=== PATIENT | male | born 1945 | race Caucasian/White ===

== ENCOUNTER 2016-09-08 15:56 | Observation (INO) | payer OTHER ==
[2016-09-08] MEDS ORDERED: MORPHINE SULFATE INJ 2 MG IVP PRN (16:59)
[2016-09-08] MEDS ORDERED: NITROSTAT SL PRN (16:59)
[2016-09-08] MEDS: NS 1000 ML 1,000 ML IV SCH (17:18)
[2016-09-08 17:25] LABS: BASOPHILS # (AUTO) 0.1 X10^3/uL (0.0-0.1); BASOPHILS % (AUTO) 0.8 % (0.2-1.0); EOSINOPHILS # (AUTO) 0.4 x10^3/uL (0.0-0.2); EOSINOPHILS % (AUTO) 3.9 % (0.9-2.9); HEMATOCRIT 48.7 % (42.0-54.0); HEMOGLOBIN 16.8 g/dL (13.5-18.0); LYMPHOCYTES # (AUTO) 1.4 X10^3/uL (1.3-2.9); LYMPHOCYTES % (AUTO) 13.3 % (21.0-51.0); MEAN CORPUSCULAR HEMOGLOBIN 32.1 pg (27.0-34.0); MEAN CORPUSCULAR HGB CONC 34.4 g/dL (33.0-35.0); MEAN CORPUSCULAR VOLUME 93.4 fL (80.0-100.0); MEAN PLATELET VOLUME 7.3 fL (7.4-11.0); MONOCYTES # (AUTO) 1.4 x10^3/uL (0.3-0.8); MONOCYTES % (AUTO) 13.4 % (0.0-13.0); NEUTROPHILS # (AUTO) 7.3 x10^3/uL (2.2-4.8); NEUTROPHILS % (AUTO) 68.6 % (42.0-75.0); PLATELET COUNT 322 X10^3/uL (150.0-450.0); RED BLOOD COUNT 5.22 X10^6/uL (4.7-6.0); RED CELL DISTRIBUTION WIDTH 14.3 % (11.6-16.5); WHITE BLOOD COUNT 10.7 X10^3/uL (3.6-10.0)
[2016-09-08 17:36] LABS: ALANINE AMINOTRANSFERASE 25 Units/L (12-78); ALBUMIN 3.6 g/dL (3.4-5.0); ALKALINE PHOSPHATASE 72 Units/L (46-116); ASPARTATE AMINO TRANSFERASE 18 Units/L (15-37); BLOOD UREA NITROGEN 14 mg/dL (7-18); CALCIUM 9.3 mg/dL (8.5-10.1); CARBON DIOXIDE 29.2 mmol/L (21-32); CHLORIDE 100 mmol/L (98-107); CREATININE 1.42 mg/dL (0.70-1.30); GLUCOSE 100 mg/dL (65-99); MAGNESIUM 1.8 mg/dL (1.7-2.9); SODIUM 135 mmol/L (136-145); TOTAL PROTEIN 8.4 g/dL (6.4-8.2); eGFR BLACK RACES > 60 (>60); eGFR NON BLACK RACES 52 (>60)
[2016-09-08 17:39] VITALS: BMI 25.4
[2016-09-08 17:44] LABS: CKMB % 0.8 % (<4); CREATINE KINASE 119 Units/L (39-308); TROPONIN I < 0.02 ng/mL (0-1.5)
--- NOTE | 2016-09-08 17:48 | RAD ---
History: Chest pain Study: Portable chest. Comparison: January 30, 2015 Findings: There is unchanged mild cardiomegaly status post old Coronary artery bypass grafting surge ry. There are intact pacemaker wire leads in place. The lungs are clear. There is no pleural effusio n or vascular congestion. Impression: Unchanged mild cardiomegaly, no definite acute disease. Reported By:
[2016-09-08 18:00] LABS: B-TYPE NATRIURETIC PEPTIDE 101 pg/mL (0-79)
[2016-09-08] MEDS: ASPIRIN PO SCH (18:34)
[2016-09-08] MEDS ORDERED: PATIENT'S HOME MEDICATION PO SCH (21:00)
[2016-09-08] MEDS ORDERED: SOTALOL HCL PO SCH (21:00)
[2016-09-08] MEDS ORDERED: ALLEGRA ONE (21:40)
[2016-09-08] MEDS: ALLEGRA PO SCH (21:46)
[2016-09-08] MEDS: COREG TAB 6.25 MG PO SCH (21:46)
[2016-09-08] MEDS: RESTORIL CAP 30 MG PO SCH (21:46)
[2016-09-08] MEDS: LIPITOR TAB 40 MG PO SCH (21:46)
[2016-09-08] MEDS: ZESTRIL TAB 10 MG PO SCH (21:47)
[2016-09-08] MEDS: FERROUS SULFATE PO SCH (21:47)
[2016-09-08] MEDS: ZANTAC PO SCH (21:47)
[2016-09-08] MEDS: XARELTO PO SCH (21:47)
[2016-09-08] MEDS: RANEXA PO SCH (21:47)
[2016-09-08] MEDS: MEXILETINE HCL 150 MG PO SCH (21:49)
[2016-09-08] MEDS: CYMBALTA PO SCH (21:54)
[2016-09-08 22:16] LABS: CKMB % 0.7 % (<4); CREATINE KINASE 148 Units/L (39-308); CREATINE KINASE MB < 1.0 ng/mL (0-4.0); TROPONIN I 0.02 ng/mL (0-1.5)
[2016-09-09 01:22] LABS: CKMB % 1.1 % (<4); CREATINE KINASE 92 Units/L (39-308); CREATINE KINASE MB < 1.0 ng/mL (0-4.0); TROPONIN I 0.02 ng/mL (0-1.5)
[2016-09-09 05:28] LABS: BASOPHILS # (AUTO) 0.1 X10^3/uL (0.0-0.1); BASOPHILS % (AUTO) 1.1 % (0.2-1.0); EOSINOPHILS # (AUTO) 0.4 x10^3/uL (0.0-0.2); EOSINOPHILS % (AUTO) 5.2 % (0.9-2.9); HEMATOCRIT 44.7 % (42.0-54.0); HEMOGLOBIN 15.2 g/dL (13.5-18.0); LYMPHOCYTES # (AUTO) 1.5 X10^3/uL (1.3-2.9); MEAN CORPUSCULAR HEMOGLOBIN 31.7 pg (27.0-34.0); MEAN CORPUSCULAR HGB CONC 33.9 g/dL (33.0-35.0); MEAN CORPUSCULAR VOLUME 93.6 fL (80.0-100.0); MEAN PLATELET VOLUME 7.2 fL (7.4-11.0); MONOCYTES # (AUTO) 1.2 x10^3/uL (0.3-0.8); MONOCYTES % (AUTO) 14.9 % (0.0-13.0); NEUTROPHILS # (AUTO) 4.8 x10^3/uL (2.2-4.8); NEUTROPHILS % (AUTO) 59.8 % (42.0-75.0); PLATELET COUNT 262 X10^3/uL (150.0-450.0); RED BLOOD COUNT 4.78 X10^6/uL (4.7-6.0)
[2016-09-09 05:34] LABS: ALANINE AMINOTRANSFERASE 25 Units/L (12-78); ALKALINE PHOSPHATASE 61 Units/L (46-116); ASPARTATE AMINO TRANSFERASE 21 Units/L (15-37); BLOOD UREA NITROGEN 13 mg/dL (7-18); CALCIUM 8.6 mg/dL (8.5-10.1); CHLORIDE 101 mmol/L (98-107); CHOL/HDL RATIO 4.4 (0.0-5.0); CHOLESTEROL 177 mg/dL (0-200); COR CA(FOR HYPOALB) 9.4 mg/dL (8.5-10.1); CREATININE 1.42 mg/dL (0.70-1.30); GLUCOSE 96 mg/dL (65-99); HDL CHOLESTEROL 40 mg/dL (40-60); SODIUM 136 mmol/L (136-145); TOTAL PROTEIN 7.4 g/dL (6.4-8.2); TRIGLYCERIDES 63 mg/dL (0-150); eGFR BLACK RACES > 60 (>60); eGFR NON BLACK RACES 52 (>60)
--- NOTE | 2016-09-09 06:18 | RAD ---
HISTORY: Chest pain Study: Chest one view Comparison: September 08, 2016 Findings: There is a pacemaker present on the left obscuring a portion of the left upper lobe. The patient is status post median sternotomy and CABG. The heart is mildly enlarged. No congestive heart failure is noted. No acute alveolar infiltrates are identified. No definite pleural effusions are identified. The bony thorax is unremarkable. IMPRESSION: Mild cardiomegaly without congestive heart failure No infiltrates Reported By:
[2016-09-09 08:13] LABS: BILIRUBIN,URINE NEGATIVE (NEGATIVE); BLOOD/HEMOGLOBIN,URINE NEGATIVE (NEGATIVE); GLUCOSE, URINE NEGATIVE (NEGATIVE); KETONES,URINE NEGATIVE (NEGATIVE); LEUKOCYTE ESTERASE ,URINE NEGATIVE (NEGATIVE); NITRITES,URINE NEGATIVE (NEGATIVE); PROTEIN,URINE NEGATIVE (NEGATIVE); UROBILINOGEN,URINE NORMAL (NORMAL)
[2016-09-09 08:21] LABS: APPEARANCE,URINE CLEAR (CLEAR); BACTERIA,URINE NEGATIVE /HPF (NEGATIVE); COLOR,URINE YELLOW (YELLOW); RBC,URINE NONE SEEN /HPF (NEGATIVE); SQUAMOUS EPITHELIAL CELL,UR RARE /HPF (NEGATIVE)
[2016-09-09] MEDS: ALDACTONE TAB 25 MG PO SCH (09:10)
[2016-09-09] MEDS: PROTONIX TAB 40 MG PO SCH (09:10)
[2016-09-09] MEDS: ASPIRIN PO SCH (09:10)
[2016-09-09] MEDS: COREG TAB 6.25 MG PO SCH ×2 (09:10→21:00)
[2016-09-09] MEDS: VALIUM PO SCH (09:11)
[2016-09-09] MEDS: FERROUS SULFATE PO SCH ×2 (09:11→21:00)
[2016-09-09] MEDS: LOVAZA PO SCH ×2 (09:12→21:01)
[2016-09-09] MEDS: RANEXA PO SCH ×2 (09:12→21:01)
[2016-09-09] MEDS: BETAPACE AF PO SCH ×2 (09:13→21:01)
[2016-09-09] MEDS: MEXILETINE HCL 150 MG PO SCH ×2 (09:15→21:02)
--- NOTE | 2016-09-09 10:28 | DR.UPDATE ---
H&P Update History and Physical Update: WAS SEEN IN OUR OFFICE ON 09/08/16. A H&P WAS COMPLETED PRIOR TO ADMISSION. PATIENT HAS BEEN SEEN AND EXAMINED WITH NO CHANGES NOTED. Changes noted: NO Yes with the following:
--- NOTE | 2016-09-09 10:36 | PCM.PROG ---
Progress Note - Progress Note for Day of Date: 09/09/16 - Subjective Subjective: IS A 71 YEAR OLD PATIENT OF OUR WHO WAS ADMITTED YESTERDAY EVENING WITH COMPLAINTS OF CHEST PAIN AND SHORTNESS OF BREATH. HE IS ALERT IN BED ON MORNING ROUNDS. PATIENT CONTINUES WITH COMPLAINTS OF SHORTNESS BUT DENIES CHEST PAIN AT THE TIME. VITALS THIS MORNING 98.5, 60, 18, 99%, 106/ 70. LABS WNL EXCEPT CREATININE 1.42, ALBUMIN 3.0, LDL CHOLESTEROL 124. CHEST XRAY REPORTS CARDIOMEGALY WITHOUT CHF. WE WILL ORDER AN ECHO, RECHECK LABS AND FOLLOW UP WITH PATIENT IN AM. - Past Medical Family Social History Past Med/Fam/Surg Hx: No changes since H&P Allergies: Allergies amiodarone Allergy (Verified 09/08/16 16:32) dabigatran etexilate [From Pradaxa] Allergy (Verified 09/08/16 16:32) zolpidem [From Ambien] Allergy (Verified 09/08/16 16:32) - Review of Systems ROS: No change since H&P - Vital Signs and I&O's Vital Signs: Temperature 98.5 F Pulse Rate [Apical] 60 Respiratory Rate 17 Blood Pressure [Right Arm] 126/83 Blood Pressure [Left Arm] 118/71 Blood Pressure 116/60 O2 Sat by Pulse Oximetry 96 Intake and Output: Intake & Output 09/06/16 09/07/16 09/08/16 09/09/16 11:59 11:59 11:59 11:59 Intake Total 1150 Balance 1150 - Physical Exam Oriented: Normal. negative: Time, Person, Place, Not Oriented, Unable to test, Other Eyes: Normal. negative: Blurred Vision, Diplopia, Discharge, Pain, Redness, Photophobia, Other Ear: Normal. negative: Right, Left, Swelling, Ecchymosis, Hemotypanum, Abrasion , Laceration Nose: Normal. negative: Injected, Discharge, Blood, Other Throat: Normal, Dry Respiratory: Normal, OTHER (SHORTNESS OF BREATH ) Cardiovascular: Normal. negative: Tachycardia, Bradycardia, Irregular, S3, S4, Systolic, Diastolic, Murmur, Edema, Other : Normal. negative: Dysuria, Hematuria, Frequency, Discharge, Testicular Pain , Bleeding, , Other Auscultation: Bowel Sounds: Normal. negative: Bruit, Absent, Increased, Decreased, High Pitched, Other Palpation: Normal Tenderness: Normal. negative: Diffuse, RUQ, RLQ, LUQ, LLQ, Epigastric, Periumbilical, Suprapubic, Mild, Moderate, Severe, Rebound, Guarding, Rigidity, Other Skin: Normal. negative: Decreased Turgur, Rash, Papular, Macular, Maculopapular , Vesicular, Pustular, Petechial, Red, Tender, Hot, Diaphoresis, Wound, Bruising , Ecchymosis, Other Musculoskeletal: Normal. negative: Right, Left, Shoulder, Clavicle, Arm, Elbow , Forearm, Wrist, Hand, Hip, Thigh, Knee, Leg, Ankle, Foot, Back:Thoracic, Back: Lumbar, Back:Midline, Back:Paraspinous, Pelvis, Swelling, Tender, Deformity, Pulse Deficit, Motor Deficit, Sensory Deficit, Instability, Crepitance Psychiatric: Normal Mood Description: Calm Affect: Normal Speech Pattern: Clear, Appropriate - Laboratory and Diagnostics Result Diagrams: 09/09/16 05:00 09/09/16 05:00 Labs: Laboratory WBC 8.0 X10^3/uL (3.6-10.0) 09/09/16 05:00 RBC 4.78 X10^6/uL (4.7-6.0) 09/09/16 05:00 Hgb 15.2 g/dL (13.5-18.0) 09/09/16 05:00 Hct 44.7 % (42.0-54.0) 09/09/16 05:00 MCV 93.6 fL (80.0-100.0) 09/09/16 05:00 MCH 31.7 pg (27.0-34.0) 09/09/16 05:00 MCHC 33.9 g/dL (33.0-35.0) 09/09/16 05:00 RDW 14.0 % (11.6-16.5) 09/09/16 05:00 Plt Count 262 X10^3/uL (150.0-450.0) 09/09/16 05:00 MPV 7.2 fL (7.4-11.0) L 09/09/16 05:00 Neut % 59.8 % (42.0-75.0) 09/09/16 05:00 Lymph % 19.0 % (21.0-51.0) L 09/09/16 05:00 [place] % 14.9 % (0.0-13.0) H 09/09/16 05:00 Eos % 5.2 % (0.9-2.9) H 09/09/16 05:00 Baso % 1.1 % (0.2-1.0) H 09/09/16 05:00 Neut # 4.8 x10^3/uL (2.2-4.8) 09/09/16 05:00 Lymph # 1.5 X10^3/uL (1.3-2.9) 09/09/16 05:00 [place] # 1.2 x10^3/uL (0.3-0.8) H 09/09/16 05:00 Eos # 0.4 x10^3/uL (0.0-0.2) H 09/09/16 05:00 Baso # 0.1 X10^3/uL (0.0-0.1) 09/09/16 05:00 Absolute Nucleated RBC 0.1 /100WBC 09/09/16 05:00 INR Target Range - 09/08/16 17:13 INR 1.41 (0.8-1.3) H 09/08/16 17:13 PTT 39.9 SECONDS (22.9-36.5) H 09/08/16 17:13 PTT Comment - 09/08/16 17:13 Sodium 136 mmol/L (136-145) 09/09/16 05:00 Corrected Sodium TNP 09/09/16 05:00 Potassium 4.7 mmol/L (3.5-5.1) 09/09/16 05:00 Chloride 101 mmol/L (98-107) 09/09/16 05:00 Carbon Dioxide 30.0 mmol/L (21-32) 09/09/16 05:00 BUN 13 mg/dL (7-18) 09/09/16 05:00 Creatinine 1.42 mg/dL (0.70-1.30) H 09/09/16 05:00 Est GFR (MDRD) Af Amer > 60 (>60) 09/09/16 05:00 Est GFR (MDRD) Non-Af 52 (>60) L 09/09/16 05:00 Glucose 96 mg/dL (65-99) 09/09/16 05:00 Calcium 8.6 mg/dL (8.5-10.1) 09/09/16 05:00 Corrected Calcium 9.4 mg/dL (8.5-10.1) 09/09/16 05:00 Magnesium 1.8 mg/dL (1.7-2.9) 09/08/16 17:13 Total Bilirubin 0.30 mg/dL (0.2-1.0) 09/09/16 05:00 AST 21 Units/L (15-37) 09/09/16 05:00 ALT 25 Units/L (12-78) 09/09/16 05:00 Alkaline Phosphatase 61 Units/L (46-116) 09/09/16 05:00 Creatine Kinase 92 Units/L (39-308) 09/09/16 00:50 CK-MB (CK-2) < 1.0 ng/mL (0-4.0) 09/09/16 00:50 CK/CKMB % Calc 1.1 % (<4) 09/09/16 00:50 Troponin I 0.02 ng/mL (0-1.5) 09/09/16 00:50 B-Natriuretic Peptide 101 pg/mL (0-79) H 09/08/16 17:13 Total Protein 7.4 g/dL (6.4-8.2) 09/09/16 05:00 Albumin 3.0 g/dL (3.4-5.0) L 09/09/16 05:00 Globulin 4.4 g/dL (2.5-4.5) 09/09/16 05:00 Albumin/Globulin Ratio 0.7 Ratio (1.1-2.1) L 09/09/16 05:00 Triglycerides 63 mg/dL (0-150) 09/09/16 05:00 Cholesterol 177 mg/dL (0-200) 09/09/16 05:00 LDL Cholesterol, Calc 124 mg/dL (0-100) H 09/09/16 05:00 HDL Cholesterol 40 mg/dL (40-60) 09/09/16 05:00 Cholesterol/HDL Ratio 4.4 (0.0-5.0) 09/09/16 05:00 Specimen Type Clean catch urine 09/09/16 07:50 Urine Color Yellow (YELLOW) 09/09/16 07:50 Urine Appearance Clear (CLEAR) 09/09/16 07:50 Urine pH 6.0 (5.0 - 8.0) 09/09/16 07:50 Ur Specific Fraser 1.015 (1.000-1.030) 09/09/16 07:50 Urine Protein Negative (NEGATIVE) 09/09/16 07:50 Urine Glucose (UA) Negative (NEGATIVE) 09/09/16 07:50 Urine Ketones Negative (NEGATIVE) 09/09/16 07:50 Urine Occult Blood Negative (NEGATIVE) 09/09/16 07:50 Urine Nitrite Negative (NEGATIVE) 09/09/16 07:50 Urine Bilirubin Negative (NEGATIVE) 09/09/16 07:50 Urine Urobilinogen Normal (NORMAL) 09/09/16 07:50 Ur Leukocyte Esterase Negative (NEGATIVE) 09/09/16 07:50 Urine RBC None seen /HPF (NEGATIVE) 09/09/16 07:50 Urine WBC None seen /HPF (NEGATIVE) 09/09/16 07:50 Ur Squamous Epith Cells Rare /HPF (NEGATIVE) 09/09/16 07:50 Urine Bacteria Negative /HPF (NEGATIVE) 09/09/16 07:50 Ur Culture Indicated? No/not indicated 09/09/16 07:50 - Plan (1) Chest pain Status: Acute Qualifiers: Chest pain type: C Ischemic chest pain type: I Plan: CONTINUE MORPHINE, NITRO, CHECK LABS AND EKG, CONTINUE TO MONITOR (2) Shortness of breath Status: Acute Plan: SUPPLEMENTAL OXYGEN, CHECK CHEST XRAY, CONTINUE TO MONITOR (3) CHF (congestive heart failure) Status: Chronic Qualifiers: Congestive heart failure type: unspecified congestive heart failure type Congestive heart failure chronicity: acute on chronic Qualified Code(s): I50.9 - Heart failure, unspecified Plan: CHECK CHEST XRAY, CHECK LABS, CONTINUE TO MONITOR (4) Hyperlipidemia Status: Chronic Qualifiers: Hyperlipidemia type: mixed hyperlipidemia Qualified Code(s): E78.2 - Mixed hyperlipidemia Plan: CONTINUE LIPITOR, CONTINUE TO MONITOR (5) Hypertension Status: Chronic Qualifiers: Hypertension type: essential hypertension Qualified Code(s): I10 - Essential (primary) hypertension Plan: CONTINUE COREG, LISINOPRIL, CONTINUE TO MONITOR (6) COPD (chronic obstructive pulmonary disease) Status: Chronic Qualifiers: COPD type: C Chronic bronchitis type: C Emphysema type: E Plan: CONTINUE HOME MEDICATIONS, CONTINUE TO MONITOR (7) GERD (gastroesophageal reflux disease) Status: Chronic Qualifiers: Esophagitis presence: E Plan: CONTINUE HOME MED ZANTAC, CONTINUE TO MONITOR
[2016-09-09] MEDS: NS 1000 ML 1,000 ML IV SCH (11:21)
[2016-09-09] MEDS ORDERED: ALLEGRA ONE (20:41)
[2016-09-09] MEDS: XARELTO PO SCH (21:00)
[2016-09-09] MEDS: RESTORIL CAP 30 MG PO SCH (21:00)
[2016-09-09] MEDS: ALLEGRA PO SCH (21:00)
[2016-09-09] MEDS: ZESTRIL TAB 10 MG PO SCH (21:01)
[2016-09-09] MEDS: LIPITOR TAB 40 MG PO SCH (21:01)
[2016-09-09] MEDS: ZANTAC PO SCH (21:01)
[2016-09-09] MEDS: CYMBALTA PO SCH (21:05)
[2016-09-10 05:33] LABS: ALANINE AMINOTRANSFERASE 21 Units/L (12-78); ALBUMIN 2.8 g/dL (3.4-5.0); ALKALINE PHOSPHATASE 57 Units/L (46-116); ASPARTATE AMINO TRANSFERASE 15 Units/L (15-37); BLOOD UREA NITROGEN 13 mg/dL (7-18); CALCIUM 8.1 mg/dL (8.5-10.1); CARBON DIOXIDE 28.3 mmol/L (21-32); CHLORIDE 103 mmol/L (98-107); COR CA(FOR HYPOALB) 9.1 mg/dL (8.5-10.1); COR NA(FOR HYPERGLY) 138 mmol/L (136-145); CREATININE 1.23 mg/dL (0.70-1.30); GLUCOSE 118 mg/dL (65-99); SODIUM 138 mmol/L (136-145); eGFR BLACK RACES > 60 (>60); eGFR NON BLACK RACES > 60 (>60)
[2016-09-10 05:43] LABS: BASOPHILS # (AUTO) 0.1 X10^3/uL (0.0-0.1); BASOPHILS % (AUTO) 1.5 % (0.2-1.0); EOSINOPHILS # (AUTO) 0.4 x10^3/uL (0.0-0.2); EOSINOPHILS % (AUTO) 4.9 % (0.9-2.9); HEMATOCRIT 43.5 % (42.0-54.0); HEMOGLOBIN 14.7 g/dL (13.5-18.0); LYMPHOCYTES # (AUTO) 1.4 X10^3/uL (1.3-2.9); LYMPHOCYTES % (AUTO) 15.3 % (21.0-51.0); MEAN CORPUSCULAR HEMOGLOBIN 32.1 pg (27.0-34.0); MEAN CORPUSCULAR HGB CONC 33.9 g/dL (33.0-35.0); MEAN CORPUSCULAR VOLUME 94.6 fL (80.0-100.0); MEAN PLATELET VOLUME 7.8 fL (7.4-11.0); MONOCYTES # (AUTO) 1.2 x10^3/uL (0.3-0.8); NEUTROPHILS # (AUTO) 5.9 x10^3/uL (2.2-4.8); NEUTROPHILS % (AUTO) 65.3 % (42.0-75.0); PLATELET COUNT 292 X10^3/uL (150.0-450.0); RED BLOOD COUNT 4.59 X10^6/uL (4.7-6.0); RED CELL DISTRIBUTION WIDTH 13.8 % (11.6-16.5); WHITE BLOOD COUNT 9.1 X10^3/uL (3.6-10.0)
--- NOTE | 2016-09-10 07:26 | RAD ---
HISTORY: Chest pain Study: Chest one view Comparison: September 09, 2016 Findings: There is a pacemaker present on the left obscuring a portion of the left upper lobe. The patient is status post median sternotomy and CABG. The heart remains enlarged. No congestive heart failure is n oted. No acute alveolar infiltrates or pleural effusions are identified. The bony thorax is unremark able. IMPRESSION: Cardiomegaly without congestive heart failure No infiltrates Reported By:
[2016-09-10] MEDS: COREG TAB 6.25 MG PO SCH (08:20)
[2016-09-10] MEDS: VALIUM PO SCH (08:20)
[2016-09-10] MEDS: FERROUS SULFATE PO SCH (08:21)
[2016-09-10] MEDS: LOVAZA PO SCH (08:21)
[2016-09-10] MEDS: ASPIRIN PO SCH (08:21)
[2016-09-10] MEDS: ALDACTONE TAB 25 MG PO SCH (08:21)
[2016-09-10] MEDS: PROTONIX TAB 40 MG PO SCH (08:21)
[2016-09-10] MEDS: BETAPACE AF PO SCH (08:21)
[2016-09-10] MEDS: MEXILETINE HCL 150 MG PO SCH (08:22)
[2016-09-10] MEDS: RANEXA PO SCH (08:22)
[2016-09-10] MEDS: NS 1000 ML 1,000 ML IV SCH (08:23)
[2016-09-10 19:11] VITALS: BP 106/64
== END 2016-09-10 17:20 | disposition home or self-care (01) ==
LOC: ICU 15:56
PROVIDERS: ADMIT Internal Medicine; ATTEND Internal Medicine
DX: R07.89 Other chest pain (principal); R06.02 Shortness of breath; I25.10 Atherosclerotic heart disease of native coronary artery without angina pectoris; I51.7 Cardiomegaly; I50.9 Heart failure, unspecified; E78.2 Mixed hyperlipidemia; J44.9 Chronic obstructive pulmonary disease, unspecified; K21.9 Gastro-esophageal reflux disease without esophagitis; Z95.0 Presence of cardiac pacemaker; R79.1 Abnormal coagulation profile; R94.4 Abnormal results of kidney function studies; E87.5 Hyperkalemia; E87.1 Hypo-osmolality and hyponatremia
CPT/HCPCS: 36415; 71010; 80053; 80061; 81001; 82550; 82553; 83735; 83880; 84484; 85025; 85610; 85730; 93005; 93306; A4216; A4222; G0378

== ENCOUNTER → 2016-09-17 | Outpatient (CLI) | payer OTHER ==
[2016-09-10 19:11] VITALS: BP 106/64
--- NOTE | 2016-09-17 12:38 | CT ---
HISTORY: Headache. Study: CT brain without contrast Comparison: None. Technique: Multiple axial images of the brain were obtained from the skull base to the vertex without administr ation of IV contrast. Dose reduction techniques including Automated Exposure Control (AEC) and adju stment of mA and kV were utilized. Findings: Age related cortical atrophy and chronic small vessel ischemic changes. No acute intraparenchymal he morrhage or mass can be identified. No extra-axial fluid collections are seen. No alteration in th e attenuation of the brain parenchyma can be identified to suggest acute or subacute ischemic change . The ventricular system is symmetric and nondilated. Severe mucosal thickening in the right maxil willie sinus with associated frothy secretions. Calcification within the posterior right maxillary sin us, which may represent a tooth root versus calcification from chronic sinusitis. IMPRESSION: 1. No acute intracranial process can be identified. 2. Right maxillary sinus disease as above. Reported By:
== END | disposition home or self-care (01) | DRG 103 ==
LOC: RAD 11:35
PROVIDERS: ATTEND Internal Medicine
DX: R51 Headache (principal); Z79.01 Long term (current) use of anticoagulants; D68.8 Other specified coagulation defects
CPT/HCPCS: 70450

== ENCOUNTER 2022-06-24 15:59 | Observation (INO) ==
--- NOTE | 2022-06-24 17:16 | EKG ---
Test Reason : CHEST PAIN , SOB Blood Pressure : */* mmHG Vent. Rate : 63 BPM Atrial Rate : 63 BPM P-R Int : 196 ms QRS Dur : 162 ms QT Int : 446 ms P-R-T Axes : 119 -55 53 degrees QTc Int : 456 ms AV dual-paced rhythm with frequent premature ventricular complexes Abnormal ECG No previous ECGs available Confirmed by Ezekiel Seay ([id number]) on 06/25/2022 6:38:17 PM Referred By: Confirmed By: Ezekiel Seay
[2022-06-24 17:36] VITALS: BMI 25.5
[2022-06-24 17:41] LABS: BASOPHILS # (AUTO) 0.1 X10^3/uL (0.0-0.1); BASOPHILS % (AUTO) 0.9 % (0.2-1.0); EOSINOPHILS # (AUTO) 0.2 x10^3/uL (0.0-0.2); EOSINOPHILS % (AUTO) 1.7 % (0.9-2.9); HEMATOCRIT 43.3 % (42.0-54.0); HEMOGLOBIN 14.4 g/dL (13.5-18.0); LYMPHOCYTES # (AUTO) 1.6 X10^3/uL (1.3-2.9); LYMPHOCYTES % (AUTO) 13.2 % (21.0-51.0); MEAN CORPUSCULAR HGB CONC 33.3 g/dL (33.0-35.0); MEAN CORPUSCULAR VOLUME 96.1 fL (80.0-100.0); MEAN PLATELET VOLUME 7.7 fL (7.4-11.0); MONOCYTES # (AUTO) 1.2 x10^3/uL (0.3-0.8); MONOCYTES % (AUTO) 9.5 % (0.0-13.0); NEUTROPHILS # (AUTO) 9.2 x10^3/uL (2.2-4.8); NEUTROPHILS % (AUTO) 74.7 % (42.0-75.0); RED BLOOD COUNT 4.51 X10^6/uL (4.7-6.0); WHITE BLOOD COUNT 12.3 X10^3/uL (3.6-10.0)
[2022-06-24 17:54] LABS: ALANINE AMINOTRANSFERASE 13 Units/L (12-78); ALBUMIN 3.7 g/dL (3.4-5.0); ALKALINE PHOSPHATASE 53 Units/L (46-116); ASPARTATE AMINO TRANSFERASE 13 Units/L (15-37); BLOOD UREA NITROGEN 11 mg/dL (7-18); CALCIUM 8.6 mg/dL (8.5-10.1); CARBON DIOXIDE 32.6 mmol/L (21-32); CHLORIDE 100 mmol/L (98-107); COR NA(FOR HYPERGLY) 140 mmol/L (136-145); CREATININE 1.35 mg/dL (0.70-1.30); SODIUM 139 mmol/L (136-145); TOTAL PROTEIN 7.2 g/dL (6.4-8.2); eGFR NON BLACK RACES 55 (>60)
[2022-06-24] MEDS: LASIX IVP SCH (17:59)
[2022-06-24] MEDS: NS 1,000 ML IV 1,000 ML IV SCH (17:59)
--- NOTE | 2022-06-24 20:24 | EKG ---
Test Reason : CHEST PAIN , SOB Blood Pressure : */* mmHG Vent. Rate : 62 BPM Atrial Rate : 62 BPM P-R Int : 194 ms QRS Dur : 178 ms QT Int : 466 ms P-R-T Axes : * -87 60 degrees QTc Int : 472 ms AV dual-paced rhythm with frequent ventricular-paced complexes Abnormal ECG When compared with ECG of 24-JUN-2022 17:09, (Unconfirmed) premature ventricular complexes are no longer present Confirmed by Ezekiel Seay ([id number]) on 06/25/2022 6:37:59 PM Referred By: Confirmed By: Ezekiel Seay
--- NOTE | 2022-06-25 01:26 | EKG ---
Test Reason : CHEST PAIN , SOB Blood Pressure : */* mmHG Vent. Rate : 60 BPM Atrial Rate : 60 BPM P-R Int : 284 ms QRS Dur : 142 ms QT Int : 432 ms P-R-T Axes : 6 -25 245 degrees QTc Int : 432 ms Atrial-paced rhythm with prolonged AV conduction Left bundle branch block Abnormal ECG When compared with ECG of 24-JUN-2022 20:17, (Unconfirmed) Electronic atrial pacemaker has replaced Electronic ventricular pacemaker Confirmed by Ezekiel Seay ([id number]) on 06/25/2022 6:37:46 PM Referred By: Confirmed By: Ezekiel Seay
[2022-06-25 05:05] LABS: BASOPHILS # (AUTO) 0.1 X10^3/uL (0.0-0.1); BASOPHILS % (AUTO) 0.7 % (0.2-1.0); EOSINOPHILS # (AUTO) 0.2 x10^3/uL (0.0-0.2); EOSINOPHILS % (AUTO) 1.9 % (0.9-2.9); HEMATOCRIT 41.5 % (42.0-54.0); HEMOGLOBIN 13.9 g/dL (13.5-18.0); LYMPHOCYTES # (AUTO) 1.5 X10^3/uL (1.3-2.9); LYMPHOCYTES % (AUTO) 12.4 % (21.0-51.0); MEAN CORPUSCULAR HGB CONC 33.5 g/dL (33.0-35.0); MEAN CORPUSCULAR VOLUME 95.8 fL (80.0-100.0); MEAN PLATELET VOLUME 7.9 fL (7.4-11.0); MONOCYTES # (AUTO) 1.3 x10^3/uL (0.3-0.8); MONOCYTES % (AUTO) 10.8 % (0.0-13.0); NEUTROPHILS # (AUTO) 9.1 x10^3/uL (2.2-4.8); NEUTROPHILS % (AUTO) 74.2 % (42.0-75.0); RED BLOOD COUNT 4.33 X10^6/uL (4.7-6.0); RED CELL DISTRIBUTION WIDTH 17.4 % (11.6-16.5); WHITE BLOOD COUNT 12.2 X10^3/uL (3.6-10.0)
[2022-06-25 05:16] LABS: ALANINE AMINOTRANSFERASE 13 Units/L (12-78); ALBUMIN 3.4 g/dL (3.4-5.0); ALKALINE PHOSPHATASE 47 Units/L (46-116); ASPARTATE AMINO TRANSFERASE 15 Units/L (15-37); BLOOD UREA NITROGEN 13 mg/dL (7-18); CALCIUM 8.3 mg/dL (8.5-10.1); CARBON DIOXIDE 32.2 mmol/L (21-32); CHLORIDE 101 mmol/L (98-107); CREATININE 1.34 mg/dL (0.70-1.30); SODIUM 139 mmol/L (136-145); TOTAL PROTEIN 6.7 g/dL (6.4-8.2); eGFR NON BLACK RACES 55 (>60)
--- NOTE | 2022-06-25 08:29 | RAD ---
HISTORYCHEST PAIN/SOBSTUDYCHEST, 1 [id number]/18/2020.TECHNIQUEPA or AP view of the chestFINDINGSLeft chest wall pacemaker with leads in good position. Status post median sternotomy and CABG. The cardiac silhouette is stably enlarged. Mediastinal contours appear stable. Linear right peripheral base opacity is present. No large pleural effusion. No pneumothorax.IMPRESSIONLinear right base opacity consistent with subsegmental atelectasis.Electronically signed by: Russell Grady (Jun 25, 2022 08:28:12)
[2022-06-25] MEDS: LASIX IVP SCH ×2 (08:55→17:35)
[2022-06-25] MEDS ORDERED: TUSSIONEX PENNKINETIC SUSP PO PRN (09:46)
[2022-06-25] MEDS ORDERED: TYLENOL #3 TAB (W/CODEINE) PO PRN (09:49)
[2022-06-25] MEDS ORDERED: NITROSTAT SL PRN (09:49)
[2022-06-25] MEDS ORDERED: FORTAZ or TAZICEF VIAL INJ 1 G in NS 100 ML IV + SPIKE MINIBAG* 100 ML IV SCH (10:00)
[2022-06-25] MEDS: DUONEB 0.5 MG/3 MG (3 mL) NEB SCH ×3 (10:11→20:20)
[2022-06-25] MEDS: PULMICORT NEB TX 0.5 MG NEB SCH ×2 (10:11→20:20)
[2022-06-25] MEDS: VITAMIN D3 25 mcg (1,000 UNITS) PO SCH ×2 (10:29→21:24)
[2022-06-25] MEDS: LOVAZA PO SCH ×2 (10:29→21:25)
[2022-06-25] MEDS: VSL#3 PO SCH (10:29)
[2022-06-25] MEDS: ROBITUSSIN DM PO SCH ×4 (10:29→21:30)
[2022-06-25] MEDS: ZESTRIL TAB 5 MG PO SCH ×2 (10:29→21:29)
[2022-06-25] MEDS: RANEXA PO SCH ×2 (10:29→21:25)
[2022-06-25] MEDS: VITAMIN C PO SCH ×2 (10:30→21:17)
[2022-06-25] MEDS: VALIUM PO SCH ×2 (10:30→21:27)
[2022-06-25] MEDS: FOLIC ACID TAB 1 MG PO SCH (10:30)
[2022-06-25] MEDS: FORTAZ or TAZICEF VIAL INJ 1 G in NS 100 ML IV 100 ML IV SCH ×3 (10:32→21:35)
[2022-06-25] MEDS: SYNTHROID 50 mcg TAB PO SCH (10:35)
[2022-06-25] MEDS: COENZYME Q10 200 MG PO SCH (10:36)
[2022-06-25] MEDS: ZINC SULFATE PO SCH (10:47)
[2022-06-25] MEDS: PLAVIX PO SCH (10:47)
[2022-06-25] MEDS: LEVAQUIN PREMIX IV 750 MG 750 MG/150 ML BAG IV SCH (11:06)
[2022-06-25] MEDS: NS 1,000 ML IV 1,000 ML IV SCH ×2 (19:00)
[2022-06-25] MEDS ORDERED: XARELTO PO SCH (21:00)
[2022-06-25] MEDS: MELATONIN PO PRN (21:19)
[2022-06-25] MEDS: XARELTO PO SCH (21:21)
[2022-06-25] MEDS: CRESTOR TAB 10 MG PO SCH (21:22)
[2022-06-25] MEDS: PriLOSEC PO SCH (21:24)
[2022-06-25] MEDS: ZOLOFT PO SCH (21:27)
[2022-06-25] MEDS: ESZOPICLONE 3 MG PO SCH (22:00)
[2022-06-26] MEDS: DUONEB 0.5 MG/3 MG (3 mL) NEB SCH ×3 (05:58→20:45)
[2022-06-26 06:08] LABS: BASOPHILS # (AUTO) 0.1 X10^3/uL (0.0-0.1); BASOPHILS % (AUTO) 0.6 % (0.2-1.0); EOSINOPHILS # (AUTO) 0.2 x10^3/uL (0.0-0.2); EOSINOPHILS % (AUTO) 1.7 % (0.9-2.9); HEMATOCRIT 40.5 % (42.0-54.0); HEMOGLOBIN 13.5 g/dL (13.5-18.0); LYMPHOCYTES # (AUTO) 1.5 X10^3/uL (1.3-2.9); LYMPHOCYTES % (AUTO) 13.6 % (21.0-51.0); MEAN CORPUSCULAR HGB CONC 33.4 g/dL (33.0-35.0); MEAN CORPUSCULAR VOLUME 95.8 fL (80.0-100.0); MEAN PLATELET VOLUME 7.7 fL (7.4-11.0); MONOCYTES # (AUTO) 1.4 x10^3/uL (0.3-0.8); MONOCYTES % (AUTO) 12.9 % (0.0-13.0); NEUTROPHILS # (AUTO) 7.8 x10^3/uL (2.2-4.8); NEUTROPHILS % (AUTO) 71.2 % (42.0-75.0); RED BLOOD COUNT 4.23 X10^6/uL (4.7-6.0); RED CELL DISTRIBUTION WIDTH 16.7 % (11.6-16.5)
[2022-06-26 06:12] LABS: ALANINE AMINOTRANSFERASE 13 Units/L (12-78); ALBUMIN 3.3 g/dL (3.4-5.0); ALKALINE PHOSPHATASE 47 Units/L (46-116); ASPARTATE AMINO TRANSFERASE 13 Units/L (15-37); BLOOD UREA NITROGEN 17 mg/dL (7-18); CALCIUM 8.3 mg/dL (8.5-10.1); CARBON DIOXIDE 31.8 mmol/L (21-32); CHLORIDE 100 mmol/L (98-107); COR CA(FOR HYPOALB) 8.9 mg/dL (8.5-10.1); COR NA(FOR HYPERGLY) 138 mmol/L (136-145); CREATININE 1.43 mg/dL (0.70-1.30); SODIUM 137 mmol/L (136-145); TOTAL PROTEIN 6.6 g/dL (6.4-8.2); eGFR NON BLACK RACES 51 (>60)
[2022-06-26] MEDS: FORTAZ or TAZICEF VIAL INJ 1 G in NS 100 ML IV 100 ML IV SCH ×3 (06:31→21:33)
--- NOTE | 2022-06-26 08:00 | RAD ---
HISTORYPneumonia, shortness of breathSTUDYChest two [id number]/26/2023FINDINGSPatient is status post median sternotomy and CABG. There is a pacemaker present on the left obscuring a portion of the left midlung. Heart is enlarged. No congestive heart failure is noted. Increased density in the right lung base is at least partially due to overlying pleural calcifications. Some infiltrate may also be present. Remainder of the lung delcid are clear. No pleural effusions are identified.IMPRESSIONContinued cardiomegaly without congestive heart failureAbnormal density in the right lung base is partially due to overlying pleural calcifications. Some infiltrate may also be presentElectronically signed by: MARK MONET (Jun 26, 2022 07:59:26)
[2022-06-26] MEDS: PULMICORT NEB TX 0.5 MG NEB SCH ×2 (08:36→20:44)
[2022-06-26] MEDS: ROBITUSSIN DM PO SCH ×4 (09:04→21:34)
[2022-06-26] MEDS: SYNTHROID 50 mcg TAB PO SCH (09:05)
[2022-06-26] MEDS: VSL#3 PO SCH (09:05)
[2022-06-26] MEDS: VITAMIN C PO SCH ×2 (09:06→21:33)
[2022-06-26] MEDS: ZINC SULFATE PO SCH (09:06)
[2022-06-26] MEDS: ALDACTONE TAB 25 MG PO SCH (09:07)
[2022-06-26] MEDS: PLAVIX PO SCH (09:07)
[2022-06-26] MEDS: RANEXA PO SCH ×2 (09:08→21:34)
[2022-06-26] MEDS: LASIX IVP SCH ×2 (09:09→17:25)
[2022-06-26] MEDS: VALIUM PO SCH ×2 (09:10→21:34)
[2022-06-26] MEDS: ZESTRIL TAB 5 MG PO SCH ×2 (09:10→21:32)
[2022-06-26] MEDS: VITAMIN D3 25 mcg (1,000 UNITS) PO SCH ×2 (09:10→21:30)
[2022-06-26] MEDS: LOVAZA PO SCH ×2 (09:11→21:35)
[2022-06-26] MEDS: LEVAQUIN PREMIX IV 750 MG 750 MG/150 ML BAG IV SCH (09:18)
[2022-06-26] MEDS: COENZYME Q10 200 MG PO SCH (09:19)
[2022-06-26] MEDS: FOLIC ACID TAB 1 MG PO SCH (09:19)
--- NOTE | 2022-06-26 10:45 | DR.H&P ---
H&P - History & Physical for Day of: H&P Date: 06/24/22 - Chief Complaint Chief Complaint: COUGH, SOB, CHEST PAIN - History of Present Illness History of Present Illness: IS A 77 YEAR OLD PATIENT OF OURS. HE PRESENTED TO THE HOSPITAL A DIRECT ADMISSION FOR FURTHER EVALUATION AND TREATMENT OF BRONCHOPNEUMONIA, SHORTNESS OF BREATH, AND CHEST PAIN. PATIENT REPORTS THAT HE BEGAN HAVING A COUGH, SHORTNESS OF BREATH, AND CHEST PAIN ABOUT A WEEK AGO. HE REPORTS THAT COUGH HAS BEEN PRODUCTIVE. HE REPORTS THAT SHORTNESS OF BREATH IS WORSE ON EXERTION. HE DESCRIBES CHEST PAIN INTERMITTENT AND PRESSURE LIKE. HE RATES PAIN A 3/10 ON ADMISSION. HE DENIES FEVER, CHILLS, NAUSEA, VOMITING, OR DIARRHEA. 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 OTHER PMH INCLUDES: CAD, CHF, HYPERLIPIDEMIA, HTN, A-FIB, GERD, ARTHRITIS, HYPOTHYROIDISM, ANEMIA, HX OF THROAT CANCER, ANXIETY, DEPRESSION, CARDIAC STENTS, CABG, CHOLECYSTECTOMY, PACEMAKER/DEFIBRILLATOR. ON ADMISSION, HIS VITALS WERE: 97.9-60-20-95%-127/66. LABS WERE OBTAINED. WBC 12.3, RBC 4.51, HGB 14.4, HCT 43.3, PLT COUNT 282, SODIUM 139, POTASSIUM 4.1, CHLORIDE 100, CARBON DIOXIDE 32.6, BUN 11, CREATININE 1.35, GLUCOSE 149, CALCIUM 8.6, AST 13, ALT 13, ALK PHOS 53, TROPONIN 34.7, BNP 379, TOTAL PROTEIN 7.2, ALBUMIN 3.7. WE SET UP A RESPIRATORY PANEL AND BLOOD CULTURES. A CHEST XRAY WAS OBTAINED AND REVEALED: Left chest wall pacemaker with leads in good position. Status post median sternotomy and CABG. The cardiac silhouette is stably enlarged. Mediastinal contours appear stable. Linear right peripheral base opacity is present. No large pleural effusion. No pneumothorax. EKG REVEALED: AV DUAL PACED RHYTHM WITH FREQUENT PVCs. HR 63 BPM. HE WAS STARTED ON NORMAL SALINE AT KVO, LEVAQUIN 750MG IV DAILY, FORTAZ 1G IV Q8H, LASIX 20MG IV BID, PULMICORT NEBS BID, DUONEBS TID, TUSSIONEX 5ML Q12H PRN, ROBITUSSIN DM 10ML QID, AND HIS HOME MEDICATIONS WERE RESUMED. HOME MEDS INCLUDES: TYLENOL #3, VITAMIN C, VITAMIN D3, PLAVIX, VALIUM, FOLIC ACID, SYNTHROID, ZESTRIL, MELATONIN, NITROSTAT, LOVAZA, PRILOSEC, RANEXA, XARELTO, CRESTOR, ZOLOFT, ALDACTONE, AND ZINC. WE WILL REPEAT CARDIAC ENZYMES AND EKGs. WE WILL OBTAIN AN ECHOCARDIOGRAM. OTHERWISE, WE WILL FOLLOW-UP WITH AM LABS AND CONTINUE TO MONITOR. TIME SPENT ON CLINICAL ASSESSMENT, REVIWING LABS AND IMAGING, DECISION MAKING, AND DOCUMENTATION GREATER THAN 75 MINUTES. - Past Medical History Past Medical History: MS, Coronary Artery Disease, Ventricular Tachycardia, Hypertension, COPD, Kidney Stones, Gout, Sleep Apnea, CHF - Past Surgical History Surgical History: Angioplasty/Stents, CABG/Valve Surgery, Cholecystectomy, Other - Family History Family Medical History: Diabetes Mellitus, Cancer, MS, Coronary Artery Disease, Heart Failure, Hypertension - Social History Does patient currently use any type of tobacco product: No Have you used tobacco products in the last 12 months: No Type of Tobacco Use: None Does any household member use tobacco: No Alcohol Use: None Drug Use: None - Medications Home Medications: amiodarone Allergy (Verified 09/17/19 16:27) dabigatran etexilate [From Pradaxa] Allergy (Verified 09/17/19 16:27) zolpidem [From Ambien] Allergy (Verified 09/17/19 16:27) CONTINUE taking the following medications Methotrexate 0.5 ml SQ WEEKLY 06/24/22 [History] acetaminophen 300 mg-codeine 60 mg tablet 1 tab PO TID PRN 06/24/22 [History] ascorbic acid (vitamin C) 1,000 mg tablet (Vitamin C) 1,000 mg PO BID 06/24/22 [History] cholecalciferol (vitamin D3) 25 mcg (1,000 unit) tablet (Vitamin D3) 25 mcg PO BID 06/24/22 [History] clopidogrel 75 mg tablet 75 mg PO QDAY 06/24/22 [History] coenzyme Q10 200 mg capsule (Co Q-10) 200 mg PO DAILY 06/24/22 [History] cyanocobalamin (vitamin B-12) 1,000 mcg/mL injection solution 1,000 mcg IM WEEKLY 06/24/22 [History] eszopiclone 3 mg tablet 3 mg PO HS 06/24/22 [History] fluticasone fur. 200 mcg-umeclid 62.5 mcg-vilant 25 mcg inhalat.powder (Trelegy Ellipta) 1 inh inhalation DAILY 06/24/22 [History] melatonin 10 mg tablet 10 mg PO HS PRN 06/24/22 [History] omega-3 acid ethyl esters 1 gram capsule 1 cap PO BID 06/24/22 [History] rosuvastatin 40 mg tablet 40 mg PO HS 06/24/22 [History] sertraline 50 mg tablet 50 mg PO HS 06/24/22 [History] zinc 50 mg capsule 50 mg PO DAILY 06/24/22 [History] - Review of Systems Constitutional: Weakness. denies: Fever, Chills Eyes: No Symptoms Reported ENT: No Symptoms Reported Respiratory: Cough, Shortness of Breath, SOB with Excertion Cardiovascular: Chest Pain Gastrointestinal: No Symptoms Reported Genitourinary: No Symptoms Reported Musculoskeletal: No Symptoms Reported Skin: No Symptoms Reported Neurological: Weakness - Physical Exam Vital Signs: Temperature 98 F Pulse Rate [Right Brachial] 60 Pulse Rate 64 Respiratory Rate 20 Blood Pressure [Left Arm] 105/61 Blood Pressure [Right Arm] 122/68 Blood Pressure 129/71 O2 Sat by Pulse Oximetry 92 Oriented: Normal Eyes: Normal Ear: Normal Nose: Normal Throat: Normal Respiratory: Diminished Throughout Cardiovascular: Normal : Normal Auscultation: Bowel Sounds: Normal Palpation: Normal Tenderness: Normal Skin: Normal Musculoskeletal: Normal Psychiatric: Normal Mood Description: Calm Affect: Normal Speech Pattern: Clear - Assessment/Plan (1) Bronchopneumonia Status: Acute Plan: SUPPLEMENTAL OXYGEN, NORMAL SALINE AT KVO, LEVAQUIN 750MG IV DAILY, FORTAZ 1G IV Q8H, LASIX 20MG IV BID, PULMICORT NEBS BID, DUONEBS TID, TUSSIONEX 5ML Q12H PRN, ROBITUSSIN DM 10ML QID, AND HIS HOME MEDICATIONS WERE RESUMED. SERIAL CARDIAC ENZYMES AND EKG. OBTAIN ECHO (2) Chest pain, rule out acute myocardial infarction Status: Acute (3) Shortness of breath Status: Acute (4) Hypertension Qualifiers: Hypertension type: primary hypertension Qualified Code(s): I10 - Essential (primary) hypertension Status: Chronic (5) COPD (chronic obstructive pulmonary disease) Qualifiers: COPD type: unspecified COPD Qualified Code(s): J44.9 - Chronic obstructive pulmonary disease, unspecified Status: Chronic (6) GERD (gastroesophageal reflux disease) Qualifiers: Esophagitis presence: esophagitis presence not specified Qualified Code(s): K21.9 - Gastro-esophageal reflux disease without esophagitis Status: Chronic (7) Coronary arteriosclerosis Status: Chronic (8) CHF (congestive heart failure) Qualifiers: Heart failure chronicity: chronic Status: Chronic - Allergies Allergies/Adverse Reactions: Allergies Allergy/AdvReac Type Severity Reaction Status Date / Time amiodarone Allergy Verified 09/17/19 16:27 dabigatran etexilate Allergy Verified 09/17/19 16:27 [From Pradaxa] zolpidem [From Ambien] Allergy Verified 09/17/19 16:27
[2022-06-26] MEDS: NS 1,000 ML IV 1,000 ML IV SCH (17:48)
[2022-06-26] MEDS: MELATONIN PO PRN (21:32)
[2022-06-26] MEDS: CRESTOR TAB 10 MG PO SCH (21:32)
[2022-06-26] MEDS: ZOLOFT PO SCH (21:32)
[2022-06-26] MEDS: XARELTO PO SCH (21:33)
[2022-06-26] MEDS: PriLOSEC PO SCH (21:34)
[2022-06-26] MEDS: ESZOPICLONE 3 MG PO SCH (22:00)
[2022-06-27] MEDS: NS 1,000 ML IV 1,000 ML IV SCH (01:25)
[2022-06-27] MEDS: FORTAZ or TAZICEF VIAL INJ 1 G in NS 100 ML IV 100 ML IV SCH (05:35)
[2022-06-27 06:05] LABS: BASOPHILS # (AUTO) 0.1 X10^3/uL (0.0-0.1); BASOPHILS % (AUTO) 0.5 % (0.2-1.0); EOSINOPHILS # (AUTO) 0.2 x10^3/uL (0.0-0.2); EOSINOPHILS % (AUTO) 2.1 % (0.9-2.9); HEMATOCRIT 40.2 % (42.0-54.0); HEMOGLOBIN 13.4 g/dL (13.5-18.0); LYMPHOCYTES # (AUTO) 1.5 X10^3/uL (1.3-2.9); LYMPHOCYTES % (AUTO) 13.1 % (21.0-51.0); MEAN CORPUSCULAR HEMOGLOBIN 31.9 pg (27.0-34.0); MEAN CORPUSCULAR HGB CONC 33.4 g/dL (33.0-35.0); MEAN CORPUSCULAR VOLUME 95.4 fL (80.0-100.0); MEAN PLATELET VOLUME 7.9 fL (7.4-11.0); MONOCYTES # (AUTO) 1.6 x10^3/uL (0.3-0.8); MONOCYTES % (AUTO) 13.3 % (0.0-13.0); NEUTROPHILS # (AUTO) 8.3 x10^3/uL (2.2-4.8); RED BLOOD COUNT 4.22 X10^6/uL (4.7-6.0); RED CELL DISTRIBUTION WIDTH 16.9 % (11.6-16.5); WHITE BLOOD COUNT 11.7 X10^3/uL (3.6-10.0)
[2022-06-27] MEDS: DUONEB 0.5 MG/3 MG (3 mL) NEB SCH (06:19)
[2022-06-27 06:22] LABS: ALANINE AMINOTRANSFERASE 12 Units/L (12-78); ALBUMIN 3.3 g/dL (3.4-5.0); ALKALINE PHOSPHATASE 46 Units/L (46-116); ASPARTATE AMINO TRANSFERASE 13 Units/L (15-37); BLOOD UREA NITROGEN 16 mg/dL (7-18); CALCIUM 8.4 mg/dL (8.5-10.1); CARBON DIOXIDE 31.8 mmol/L (21-32); CHLORIDE 101 mmol/L (98-107); CREATININE 1.38 mg/dL (0.70-1.30); SODIUM 138 mmol/L (136-145); TOTAL PROTEIN 6.8 g/dL (6.4-8.2); eGFR NON BLACK RACES 53 (>60)
--- NOTE | 2022-06-27 07:40 | RAD ---
HISTORYShortness of breathSTUDYChest AP [id number]/27/2023FINDINGSTher e is a pacemaker present on the left obscuring a portion of the lateral left upper lobe. Patient is status post median sternotomy and CABG. Heart remains enlarged. No congestive heart failure is noted. No acute infiltrates are present. No pleural effusions are identified. Pleural calcifications are present in the right lung base. Bony thorax is unremarkable.IMPRESSIONCardiomegaly without congestive heart failureNo residual infiltratesPleural calcifications on the right as describedElectronically signed by: MARK MONET (Jun 27, 2022 07:38:43)
[2022-06-27] MEDS: PULMICORT NEB TX 0.5 MG NEB SCH (08:41)
[2022-06-27 08:50] VITALS: BP 134/79
[2022-06-27] MEDS: PLAVIX PO SCH (09:19)
[2022-06-27] MEDS: VSL#3 PO SCH (09:19)
[2022-06-27] MEDS: SYNTHROID 50 mcg TAB PO SCH (09:19)
[2022-06-27] MEDS: LASIX IVP SCH (09:20)
[2022-06-27] MEDS: LOVAZA PO SCH (09:20)
[2022-06-27] MEDS: VITAMIN C PO SCH (09:20)
[2022-06-27] MEDS: RANEXA PO SCH (09:21)
[2022-06-27] MEDS: VALIUM PO SCH (09:21)
[2022-06-27] MEDS: FOLIC ACID TAB 1 MG PO SCH (09:21)
[2022-06-27] MEDS: VITAMIN D3 25 mcg (1,000 UNITS) PO SCH (09:21)
[2022-06-27] MEDS: ALDACTONE TAB 25 MG PO SCH (09:21)
[2022-06-27] MEDS: ZINC SULFATE PO SCH (09:22)
[2022-06-27] MEDS: ZESTRIL TAB 5 MG PO SCH (09:22)
[2022-06-27] MEDS: LEVAQUIN PREMIX IV 750 MG 750 MG/150 ML BAG IV SCH (09:22)
[2022-06-27] MEDS: ROBITUSSIN DM PO SCH (09:31)
[2022-06-27] MEDS: COENZYME Q10 200 MG PO SCH (09:31)
== END 2022-06-27 10:56 | disposition home or self-care (01) ==
LOC: MED/SURG
PROVIDERS: ADMIT Internal Medicine; ATTEND Internal Medicine
DX: E03.8 Other specified hypothyroidism; I50.9 Heart failure, unspecified; Z85.21 Personal history of malignant neoplasm of larynx; R06.02 Shortness of breath; K21.9 Gastro-esophageal reflux disease without esophagitis; J18.0 Bronchopneumonia, unspecified organism; I48.91 Unspecified atrial fibrillation; I11.0 Hypertensive heart disease with heart failure; I25.10 Atherosclerotic heart disease of native coronary artery without angina pectoris; R07.89 Other chest pain; E78.2 Mixed hyperlipidemia; F41.8 Other specified anxiety disorders; J44.9 Chronic obstructive pulmonary disease, unspecified

== ENCOUNTER 2024-05-27 11:53 | Inpatient (IN) ==
--- NOTE | 2024-05-27 12:03 | DR.GENAD ---
HPI Time Seen Time Seen by Provider: 05/27/24 12:00 Complaint/Symptoms Chief Complaint Doctors Comments: Patient was told to come here by one of his physicians in [place] because of lethargy and not eating. History of some type of cancer unable to ascertain what that is right now. PMH PMH Past Medical History: CHF, COPD, Coronary Artery Disease, Gout, Hypertension, Kidney Stones, ID, Sleep Apnea and Ventricular Tachycardia Past Surgical History: Yes Surgical History: Angioplasty/Stents, CABG/Valve Surgery, Cholecystectomy and Other Family History Family Medical History: Diabetes Mellitus, Cancer, ID, Coronary Artery Disease, Heart Failure and Hypertension Social History Do you use any recreational Drugs:: No ROS Review of Systems Constitutional: Weakness, Loss of Appetite and Other (cough and elevated wbc's) Eyes: No Symptoms Reported ENTM: No Symptoms Reported Respiratoy: Non-Productive Cough Cardiovascular: No Symptoms Reported Gastrointestinal/Abdominal: No Symptoms Reported Genitourinary: No Symptoms Reported Neurological: No Symptoms Reported Musculoskeletal: No Symptoms Reported Integumentary: No Symptoms Reported Hematologic/Lymphatic: No Symptoms Reported Endocrine: No Symptoms Reported Psychiatric: No Symptoms Reported PE Vital Signs Vitals: Vital Signs Temperature 97.8 F Pulse Rate 75 Pulse Rate 75 Pulse Rate 71 Pulse Rate 74 Pulse Rate 75 Pulse Rate 97 Pulse Rate 75 Pulse Rate 76 Pulse Rate 76 Pulse Rate 79 Pulse Rate 80 Pulse Rate 83 Pulse Rate 82 Pulse Rate 93 Pulse Rate 88 Pulse Rate 94 Pulse Rate 95 Respiratory Rate 17 Respiratory Rate 20 Respiratory Rate 17 Respiratory Rate 16 Blood Pressure 122/59 Blood Pressure 117/70 Blood Pressure 96/63 Blood Pressure 105/63 Blood Pressure 115/64 Blood Pressure 114/74 Blood Pressure 124/64 Blood Pressure 139/72 Blood Pressure 148/75 O2 Sat by Pulse Oximetry 95 O2 Sat by Pulse Oximetry 95 O2 Sat by Pulse Oximetry 96 O2 Sat by Pulse Oximetry 97 O2 Sat by Pulse Oximetry 94 O2 Sat by Pulse Oximetry 96 O2 Sat by Pulse Oximetry 97 O2 Sat by Pulse Oximetry 96 O2 Sat by Pulse Oximetry 95 O2 Sat by Pulse Oximetry 98 O2 Sat by Pulse Oximetry 97 O2 Sat by Pulse Oximetry 96 O2 Sat by Pulse Oximetry 94 O2 Sat by Pulse Oximetry 95 General Limitations: Physical Limitation (limited ambulation due to lethargy) General Appearance: Lethargic Head Head Exam: Normal Inspection, Atraumatic and Normocephalic Eyes Eye exam: Normal Appearance ENT ENT Exam: Normal Exam External Ear Exam: Normal External Inspection TM/Canal Exam: Bilateral: Normal Nose Exam: Normal Nose Exam Mouth Exam: Normal Inspection Throat Exam: Normal Inspection Neck Neck Exam: Normal Inspection Chest Chest Inspection: Normal Inspection Respiratory Respiratory Exam: Normal Lung Sounds Bilat Respiratory Exam: Bilateral: Rhonchi Cardiovascular Cardiovascular Exam: Regular Rate Abdominal Exam Abdominal Exam: Normal Inspection Extremities Extremities Exam: Normal Inspection Back Back Exam: Normal Inspection Neurologic Neurological Exam: Alert Psychiatric Psychiatric Exam: Normal Affect MDM Differential Diagnosis Differential Diagnosis: dehydration,pneumonia,uti,viral urti,sepsis COURSE Treatment Treatment: This patient remained relatively stable during ER evaluation. Did do a workup on this patient for possible pneumonia and he had about a chest x-ray bibasilar pneumonia. We did do a urinalysis and he did have a urinary tract infection we did a lactic acid level is 2.1 his CBC showed a slight elevated WBC of 11.3 and his metabolic panel showed slightly elevated BUN 23 creatinine was okay at 0.97 his glucose was up to 254. We did a COVID respiratory panel that was negative. Patient was given a 1 L bolus of normal saline and was given Rocephin 1 g IV in the emergency department. I spoke to Dr. Peters about this patient at 1720 and he stated he would except the patient for admission for Dr. Arambula. This patient also had a repeat Vahid lactic acid level done while he was in emergency room that was down to 1.4 initially it was 2.1. The patient and the patient family was told about the intent to admit and they were agreeable to the admission. We did hear back from the case management and they said the patient could be a full admission. [facility]OR Labs Reviewed Laboratory Results Reviewed?: Yes 05/27/24 12:30 05/27/24 12:30 Laboratory: WBC 11.3 X10^3/uL (3.6-10.0) H 05/27/24 12:30 RBC 4.15 X10^6/uL (4.7-6.0) L 05/27/24 12:30 Hgb 12.7 g/dL (13.5-18.0) L 05/27/24 12:30 Hct 40.3 % (42.0-54.0) L 05/27/24 12:30 MCV 97.2 fL (80.0-100.0) 05/27/24 12: MCH 30.6 pg (27.0-34.0) 05/27/24 12: MCHC 31.5 g/dL (33.0-35.0) L 05/27/24 12: RDW 22.8 % (11.6-16.5) H 05/27/24 12:30 Plt Count 305 X10^3/uL (150.0-450.0) 05/27/24 12: Plt Count Comment Adequate (ADEQUATE) 05/27/24 12: MPV 7.1 fL (7.4-11.0) L 05/27/24 12: Neut % (Auto) 86.0 % (42.0-75.0) H 05/27/24 12: Lymph % (Auto) 8.5 % (21.0-51.0) L 05/27/24 12: Miller % (Auto) 3.6 % (0.0-13.0) 05/27/24 12: Eos % (Auto) 1.6 % (0.9-2.9) 05/27/24 12: Baso % (Auto) 0.3 % (0.2-1.0) 05/27/24 12: Neut # (Auto) 9.7 x10^3/uL (2.2-4.8) H 05/27/24 12:30 Lymph # (Auto) 1.0 X10^3/uL (1.3-2.9) L 05/27/24 12:30 Miller # (Auto) 0.4 x10^3/uL (0.3-0.8) 05/27/24 12: Eos # (Auto) 0.2 x10^3/uL (0.0-0.2) 05/27/24 12: Baso # (Auto) 0.0 X10^3/uL (0.0-0.1) 05/27/24 12: Absolute Nucleated RBC 1.6 /100WBC 05/27/24 12:30 Plt Morphology Comment Normal (NORMAL) 05/27/24 12: RBC Morphology Abnormal (NORMAL) 05/27/24 12:30 Anisocytosis 2+ A 05/27/24 12:30 Sodium 138 mmol/L (136-145) 05/27/24 12:30 Corrected Sodium 142 mmol/L (136-145) 05/27/24 12:30 Potassium 3.9 mmol/L (3.5-5.1) 05/27/24 12:30 Chloride 100 mmol/L (98-107) 05/27/24 12:30 Carbon Dioxide 29.0 mmol/L (21-32) 05/27/24 12:30 BUN 23 mg/dL (7-18) H 05/27/24 12:30 Creatinine 0.97 mg/dL (0.70-1.30) 05/27/24 12:30 Est GFR (MDRD) Af Amer > 60 (>60) 05/27/24 12:30 Est GFR (MDRD) Non-Af > 60 (>60) 05/27/24 12:30 Glucose 254 mg/dL (65-99) H 05/27/24 12:30 Lactic Acid 1.4 mmol/L (0.4-2.0) 05/27/24 17:10 Calcium 9.2 mg/dL (8.5-10.1) 05/27/24 12:30 Corrected Calcium 10.9 mg/dL (8.5-10.1) H 05/27/24 12:30 Total Bilirubin 0.50 mg/dL (0.2-1.0) 05/27/24 12:30 AST 97 Units/L (15-37) H 05/27/24 12:30 ALT 26 Units/L (12-78) 05/27/24 12:30 Alkaline Phosphatase 182 Units/L (46-116) H 05/27/24 12:30 Total Protein 6.7 g/dL (6.4-8.2) 05/27/24 12:30 Albumin 1.9 g/dL (3.4-5.0) L 05/27/24 12:30 Globulin 4.8 g/dL (2.5-4.5) H 05/27/24 12:30 Albumin/Globulin Ratio 0.4 Ratio (1.1-2.1) L 05/27/24 12:30 Specimen Type Clean catch urine 05/27/24 16:17 Urine Color Dark yellow (YELLOW) 05/27/24 16:17 Urine Appearance Hazy (CLEAR) 05/27/24 16:17 Urine pH 6.0 (5.0 - 8.0) 05/27/24 16:17 Ur Specific [place] 1.020 (1.000-1.030) 05/27/24 16:17 Urine Protein 2+ (NEGATIVE) 05/27/24 16:17 Urine Glucose (UA) 4+ (NEGATIVE) 05/27/24 16:17 Urine Ketones Negative (NEGATIVE) 05/27/24 16:17 Urine Blood 1+ (NEGATIVE) 05/27/24 16:17 Urine Nitrite Negative (NEGATIVE) 05/27/24 16:17 Urine Bilirubin Negative (NEGATIVE) 05/27/24 16:17 Urine Urobilinogen Normal (NORMAL) 05/27/24 16:17 Ur Leukocyte Esterase 3+ (NEGATIVE) 05/27/24 16:17 Urine RBC 5-10 /HPF (0-3) A 05/27/24 16:17 Urine WBC 5-10 /HPF (0-5) A 05/27/24 16:17 Ur Squamous Epith Cells Few /HPF (NEGATIVE) 05/27/24 16:17 Urine Bacteria 3+ /HPF (NEGATIVE) 05/27/24 16:17 Hyaline Casts Few /LPF (NEGATIVE) 05/27/24 16:17 Urine Mucus Few /HPF (NEGATIVE) 05/27/24 16:17 Urine Yeast Rare /HPF (NEGATIVE) 05/27/24 16:17 Ur Culture Indicated? Yes/culture set up 05/27/24 16:17 SARS-CoV-2 (PCR) Negative (NEGATIVE) 05/27/24 12:45 Influenza Type A (PCR) Negative (NEGATIVE) 05/27/24 12:45 Influenza Type B (PCR) Negative (NEGATIVE) 05/27/24 12:45 RSV (PCR) Negative (NEGATIVE) 05/27/24 12:45 Opioid Opioid Risk Tool Age (Boni box if 16-45): No History of Preadolescent Sexual Abuse: No Total: 0 Total Score Risk Category: Low Risk Copyright: Dar GRIFFITH predicting aberrant behaviors Discharge Plan Diagnosis Discharge Problem: Pneumonia, Dehydration, Urinary tract infection, Adult failure to thrive Discharge Plan Patient Disposition: 09 ADMITTED INPATIENT Condition: Stable Orders to Discharge Patient Discharge Orders: Transfer (Routine); Ordered 05/27/24 Ordered By: Kwasi Arguello
[2024-05-27 12:40] LABS: BASOPHILS % (AUTO) 0.3 % (0.2-1.0); EOSINOPHILS # (AUTO) 0.2 x10^3/uL (0.0-0.2); EOSINOPHILS % (AUTO) 1.6 % (0.9-2.9); HEMATOCRIT 40.3 % (42.0-54.0); HEMOGLOBIN 12.7 g/dL (13.5-18.0); LYMPHOCYTES % (AUTO) 8.5 % (21.0-51.0); MEAN CORPUSCULAR HEMOGLOBIN 30.6 pg (27.0-34.0); MEAN CORPUSCULAR HGB CONC 31.5 g/dL (33.0-35.0); MEAN CORPUSCULAR VOLUME 97.2 fL (80.0-100.0); MEAN PLATELET VOLUME 7.1 fL (7.4-11.0); MONOCYTES # (AUTO) 0.4 x10^3/uL (0.3-0.8); MONOCYTES % (AUTO) 3.6 % (0.0-13.0); NEUTROPHILS # (AUTO) 9.7 x10^3/uL (2.2-4.8); PLATELET COUNT 305 X10^3/uL (150.0-450.0); RED BLOOD COUNT 4.15 X10^6/uL (4.7-6.0); RED CELL DISTRIBUTION WIDTH 22.8 % (11.6-16.5); WHITE BLOOD COUNT 11.3 X10^3/uL (3.6-10.0)
[2024-05-27 12:58] LABS: ALANINE AMINOTRANSFERASE 26 Units/L (12-78); ALBUMIN 1.9 g/dL (3.4-5.0); ALKALINE PHOSPHATASE 182 Units/L (46-116); ASPARTATE AMINO TRANSFERASE 97 Units/L (15-37); BLOOD UREA NITROGEN 23 mg/dL (7-18); CALCIUM 9.2 mg/dL (8.5-10.1); CHLORIDE 100 mmol/L (98-107); COR CA(FOR HYPOALB) 10.9 mg/dL (8.5-10.1); COR NA(FOR HYPERGLY) 142 mmol/L (136-145); CREATININE 0.97 mg/dL (0.70-1.30); GLUCOSE 254 mg/dL (65-99); POTASSIUM 3.9 mmol/L (3.5-5.1); SODIUM 138 mmol/L (136-145); TOTAL PROTEIN 6.7 g/dL (6.4-8.2); eGFR NON BLACK RACES > 60 (>60)
[2024-05-27 13:10] LABS: PLATELET MORPHOLOGY COMMENT NORMAL (NORMAL)
[2024-05-27 13:11] LABS: ANISOCYTOSIS 2+
--- NOTE | 2024-05-27 13:34 | RAD ---
EXAM: CHEST, 1 VIEW HISTORY: COUGH; CAD, CHF, OK, ANGINA, HTN, AFIB, GERD, THROAT CA SX: PACEMAKER/DEFIB, ANGIO/STENTS, CABG/VALV E, MARANDA, COMPARISON: Prior study or studies were utilized for comparison during interpretation with the most relevant debbie ed 11/17/2022 TECHNIQUE: CHEST, 1 VIEW FINDINGS: Chest: Lines and tubes: Left-sided pacemaker generator with lead or leads in satisfactory position. Mediastinum: Median sternotomy wires are present. Cardiac shadow is normal in size. Pulmonary vessels: No pulmonary vascular congestion. Lung delcid: Patchy opacities are seen in both bases Pleura: No effusion. No pneumothorax. Bones and soft tissues: No acute osseous or soft tissue abnormality. IMPRESSION: 1. Possible bibasilar pneumonia THIS IS AN ELECTRONICALLY VERIFIED FINAL REPORT 05/27/2024 1:31 PM - Electronically signed by Karthik Dan MD
[2024-05-27] MEDS: NS 1,000 ML IV 1,000 ML IV ONE (14:54)
[2024-05-27 16:25] LABS: APPEARANCE,URINE HAZY (CLEAR); BILIRUBIN,URINE NEGATIVE (NEGATIVE); BLOOD/HEMOGLOBIN,URINE 1+ (NEGATIVE); COLOR,URINE DARK YELLOW (YELLOW); GLUCOSE, URINE 4+ (NEGATIVE); KETONES,URINE NEGATIVE (NEGATIVE); LEUKOCYTE ESTERASE ,URINE 3+ (NEGATIVE); NITRITES,URINE NEGATIVE (NEGATIVE); PROTEIN,URINE 2+ (NEGATIVE); UROBILINOGEN,URINE NORMAL (NORMAL)
[2024-05-27 16:35] LABS: BACTERIA,URINE 3+ /HPF (NEGATIVE); SQUAMOUS EPITHELIAL CELL,UR FEW /HPF (NEGATIVE)
[2024-05-27 16:36] LABS: HYALINE CASTS, URINE FEW /LPF (NEGATIVE); YEAST,URINE RARE /HPF (NEGATIVE)
[2024-05-27] MEDS: ROCEPHIN VIAL 1 GRAM IVP ONE (17:01)
[2024-05-27] MEDS: ROCEPHIN VIAL 1 GRAM 1 G in NS 100 ML IV 100 ML IV SCH (18:26)
[2024-05-27] MEDS: PULMICORT NEB TX 0.5 MG NEB SCH (20:19)
[2024-05-27] MEDS: DUONEB 0.5 MG/3 MG (3 mL) NEB SCH (20:19)
[2024-05-27] MEDS: NS 1,000 ML IV 1,000 ML IV SCH (21:10)
[2024-05-28] MEDS ORDERED: LASIX PO PRN (00:08)
[2024-05-28] MEDS ORDERED: VALIUM PO PRN (00:08)
[2024-05-28] MEDS ORDERED: METHOTREXATE SODIUM 25 MG/ML subcut SCH (00:08)
[2024-05-28] MEDS ORDERED: DUONEB 0.5 MG/3 MG (3 mL) NEB PRN (00:08)
[2024-05-28] MEDS ORDERED: NITROSTAT SL PRN (00:08)
[2024-05-28] MEDS ORDERED: TYLENOL #3 TAB (W/CODEINE) PO PRN (00:37)
[2024-05-28] MEDS: ZOLOFT PO SCH (00:59)
[2024-05-28] MEDS: CRESTOR TAB 10 MG PO SCH (00:59)
[2024-05-28] MEDS: RANEXA PO SCH (00:59)
[2024-05-28] MEDS: COREG TAB 6.25 MG PO SCH (01:00)
[2024-05-28] MEDS: MEGACE ORAL SUSP 400 MG/10 ML PO SCH (05:47)
[2024-05-28 06:50] LABS: BASOPHILS # (AUTO) 0.1 X10^3/uL (0.0-0.1); BASOPHILS % (AUTO) 0.4 % (0.2-1.0); EOSINOPHILS # (AUTO) 0.2 x10^3/uL (0.0-0.2); EOSINOPHILS % (AUTO) 1.6 % (0.9-2.9); HEMATOCRIT 38.3 % (42.0-54.0); HEMOGLOBIN 12.3 g/dL (13.5-18.0); LYMPHOCYTES # (AUTO) 1.2 X10^3/uL (1.3-2.9); MEAN CORPUSCULAR HEMOGLOBIN 31.4 pg (27.0-34.0); MEAN CORPUSCULAR HGB CONC 32.2 g/dL (33.0-35.0); MEAN CORPUSCULAR VOLUME 97.6 fL (80.0-100.0); MEAN PLATELET VOLUME 7.2 fL (7.4-11.0); MONOCYTES # (AUTO) 0.6 x10^3/uL (0.3-0.8); MONOCYTES % (AUTO) 4.3 % (0.0-13.0); NEUTROPHILS % (AUTO) 84.7 % (42.0-75.0); PLATELET COUNT 283 X10^3/uL (150.0-450.0); RED BLOOD COUNT 3.93 X10^6/uL (4.7-6.0); RED CELL DISTRIBUTION WIDTH 22.3 % (11.6-16.5)
[2024-05-28 06:59] LABS: ALANINE AMINOTRANSFERASE 22 Units/L (12-78); ALBUMIN 1.8 g/dL (3.4-5.0); ALKALINE PHOSPHATASE 196 Units/L (46-116); ASPARTATE AMINO TRANSFERASE 111 Units/L (15-37); BLOOD UREA NITROGEN 18 mg/dL (7-18); CALCIUM 8.6 mg/dL (8.5-10.1); CARBON DIOXIDE 28.3 mmol/L (21-32); CHLORIDE 98 mmol/L (98-107); COR CA(FOR HYPOALB) 10.4 mg/dL (8.5-10.1); COR NA(FOR HYPERGLY) 137 mmol/L (136-145); CREATININE 0.75 mg/dL (0.70-1.30); GLUCOSE 139 mg/dL (65-99); POTASSIUM 3.8 mmol/L (3.5-5.1); SODIUM 136 mmol/L (136-145); TOTAL PROTEIN 6.3 g/dL (6.4-8.2); eGFR NON BLACK RACES > 60 (>60)
[2024-05-28 07:23] LABS: ANISOCYTOSIS 2+; PLATELET MORPHOLOGY COMMENT NORMAL (NORMAL)
[2024-05-28] MEDS: PLAVIX PO SCH (08:47)
[2024-05-28] MEDS: IMDUR PO SCH (08:47)
[2024-05-28] MEDS: XARELTO PO SCH (08:47)
[2024-05-28] MEDS: PriLOSEC PO SCH (08:47)
[2024-05-28] MEDS: FOLIC ACID TAB 1 MG PO SCH (08:47)
[2024-05-28] MEDS: SYNTHROID 50 mcg TAB PO SCH (08:47)
[2024-05-28] MEDS: ALDACTONE TAB 25 MG PO SCH (08:47)
[2024-05-28] MEDS: DUONEB 0.5 MG/3 MG (3 mL) NEB SCH (08:55)
[2024-05-28] MEDS: PULMICORT NEB TX 0.5 MG NEB SCH (08:56)
[2024-05-28] MEDS ORDERED: PATIENT'S HOME MEDICATION (Fluticasone-Umeclidin-Vilanter [Trelegy Ellipta] 200-62.5-25 mc IN SCH (09:00)
--- NOTE | 2024-05-28 12:19 | DR.H&P ---
H&P History & Physical for Day of: H&P Date: 05/27/24 Chief Complaint Chief Complaint: WEAKNESS, ABNORMAL OUTPT LABS History of Present Illness History of Present Illness: PT IS 78WM, PT OF DR CUEVAS, SENT TO ER FOR EVALUATION AND OF ABNORMAL LABS AND DIFFUSE WEAKNESS. PT HAS A PMH OF CAD, HTN AND THROAT CANCER IN REMISSION FOR > 5YEARS. PT HAD PNEUMONIA ON CXR AND UTI. PT ADMITTED FOR EVALUATION AND TREATMENT OF ACUTE ILLNESS. Past Medical History Past Medical History: CHF, COPD, Coronary Artery Disease, Diabetes, GERD, Gout, Hypertension, Hypothyroidism, Kidney Stones, CO, Sleep Apnea and Ventricular Tachycardia Past Surgical History Surgical History: Cholecystectomy Family History Family Medical History: Diabetes Mellitus, Cancer, CO, Coronary Artery Disease, Heart Failure and Hypertension Social History Does patient currently use any type of tobacco product: No Type of Tobacco Use: None Does any household member use tobacco: No Alcohol Use: None Drug Use: None Medications Home Medications: Home Medications Medication Instructions Recorded Confirmed Type folic acid 1 mg tablet 1 mg PO DAILY 09/02/19 05/27/24 History testosterone cypionate 200 mg/mL 200 mg IM WEEKLY 09/02/19 05/27/24 History intramuscular oil vitamins A,C,M-kcje-khqtjt 4,296 1 cap PO BID 09/02/19 05/27/24 History mcg-226 mg-90 mg capsule (PreserVision AREDS) cholecalciferol (vitamin D3) 25 25 mcg PO BID 06/24/22 05/27/24 History mcg (1,000 unit) tablet (Vitamin D3) coenzyme Q10 200 mg capsule (Co 200 mg PO DAILY 06/24/22 05/27/24 History Q-10) fluticasone fur. 200 mcg-umeclid 1 inh inhalation DAILY 06/24/22 05/27/24 History 62.5 mcg-vilant 25 mcg inhalat.powder (Trelegy Ellipta) omega-3 acid ethyl esters 1 gram 1 cap PO BID 06/24/22 05/27/24 History capsule acetaminophen 300 mg-codeine 60 mg 1 tab PO TID PRN 11/17/22 05/27/24 History tablet carvedilol 6.25 mg tablet 3.125 mg PO BID 11/17/22 05/27/24 History clopidogrel 75 mg tablet 75 mg PO QDAY 11/17/22 05/27/24 History diazepam 5 mg tablet 5 mg PO BID PRN 11/17/22 05/27/24 History furosemide 20 mg tablet 20 mg PO Q48H PRN 11/17/22 05/27/24 History ipratropium 0.5 mg-albuterol 3 mg 1 neb NEB PRN PRN 11/17/22 05/27/24 History (2.5 mg base)/3 mL nebulization soln levothyroxine 50 mcg tablet 50 mcg PO QDAY 11/17/22 05/27/24 History methotrexate sodium (PF) 25 mg/mL 50 mg subcut WEEKLY 11/17/22 05/27/24 History injection solution nitroglycerin 0.4 mg sublingual 0.4 mg sublingual PRN PRN 11/17/22 05/27/24 History tablet omeprazole 40 mg capsule,delayed 40 mg PO QDAY 11/17/22 05/27/24 History release ranolazine 500 mg tablet,extended 500 mg PO BID 11/17/22 05/27/24 History release,12 hr rivaroxaban 20 mg tablet (Xarelto) 20 mg PO QDAY 11/17/22 05/27/24 History rosuvastatin 40 mg tablet 40 mg PO HS 11/17/22 05/27/24 History sertraline 50 mg tablet 100 mg PO HS 11/17/22 05/27/24 History spironolactone 25 mg tablet 25 mg PO QDAY 11/17/22 05/27/24 History empagliflozin 10 mg tablet 10 mg PO QDAY 05/27/24 05/27/24 History (Jardiance) eszopiclone 3 mg tablet (Lunesta) 3 mg PO HS PRN 05/27/24 05/27/24 History isosorbide mononitrate 30 mg 30 mg PO QAM 05/27/24 05/27/24 History tablet,extended release 24 hr vitamin [id number] B1 1,000 2 ml IM WEEKLY 05/27/24 05/27/24 History mcg-100 mg/mL injection solution Allergies Allergies Allergy/AdvReac Type Severity Reaction Status Date / Time amiodarone Allergy Verified 05/27/24 16:55 dabigatran etexilate Allergy Verified 05/27/24 16:55 [From Pradaxa] zolpidem [From Ambien] Allergy Verified 05/27/24 16:55 Labs 05/28/24 05:20 05/28/24 05:20 Labs: 05/27/24 14:57 Blood Blood Culture Gram Stain - Final 05/27/24 16:17 Urine,Clean Catch Urine Culture - Preliminary Laboratory WBC 13.0 X10^3/uL (3.6-10.0) H 05/28/24 05:20 RBC 3.93 X10^6/uL (4.7-6.0) L 05/28/24 05:20 Hgb 12.3 g/dL (13.5-18.0) L 05/28/24 05:20 Hct 38.3 % (42.0-54.0) L 05/28/24 05:20 MCV 97.6 fL (80.0-100.0) 05/28/24 05:20 MCH 31.4 pg (27.0-34.0) 05/28/24 05:20 MCHC 32.2 g/dL (33.0-35.0) L 05/28/24 05:20 RDW 22.3 % (11.6-16.5) H 05/28/24 05:20 Plt Count 283 X10^3/uL (150.0-450.0) 05/28/24 05:20 Plt Count Comment Adequate (ADEQUATE) 05/28/24 05:20 MPV 7.2 fL (7.4-11.0) L 05/28/24 05:20 Neut % (Auto) 84.7 % (42.0-75.0) H 05/28/24 05:20 Lymph % (Auto) 9.0 % (21.0-51.0) L 05/28/24 05:20 [place] % (Auto) 4.3 % (0.0-13.0) 05/28/24 05:20 Eos % (Auto) 1.6 % (0.9-2.9) 05/28/24 05:20 Baso % (Auto) 0.4 % (0.2-1.0) 05/28/24 05:20 Neut # (Auto) 11.0 x10^3/uL (2.2-4.8) H 05/28/24 05:20 Lymph # (Auto) 1.2 X10^3/uL (1.3-2.9) L 05/28/24 05:20 [place] # (Auto) 0.6 x10^3/uL (0.3-0.8) 05/28/24 05:20 Eos # (Auto) 0.2 x10^3/uL (0.0-0.2) 05/28/24 05:20 Baso # (Auto) 0.1 X10^3/uL (0.0-0.1) 05/28/24 05:20 Absolute Nucleated RBC 1.9 /100WBC 05/28/24 05:20 Plt Morphology Comment Normal (NORMAL) 05/28/24 05:20 RBC Morphology Abnormal (NORMAL) 05/28/24 05:20 Anisocytosis 2+ A 05/28/24 05:20 Sodium 136 mmol/L (136-145) 05/28/24 05:20 Corrected Sodium 137 mmol/L (136-145) 05/28/24 05:20 Potassium 3.8 mmol/L (3.5-5.1) 05/28/24 05:20 Chloride 98 mmol/L (98-107) 05/28/24 05:20 Carbon Dioxide 28.3 mmol/L (21-32) 05/28/24 05:20 BUN 18 mg/dL (7-18) 05/28/24 05:20 Creatinine 0.75 mg/dL (0.70-1.30) 05/28/24 05:20 Est GFR (MDRD) Af Amer > 60 (>60) 05/28/24 05:20 Est GFR (MDRD) Non-Af > 60 (>60) 05/28/24 05:20 Glucose 139 mg/dL (65-99) H 05/28/24 05:20 POC Glucose (mg/dL) 160 mg/dL (65-99) H 05/28/24 01:07 Lactic Acid 1.4 mmol/L (0.4-2.0) 05/27/24 17:10 Calcium 8.6 mg/dL (8.5-10.1) 05/28/24 05:20 Corrected Calcium 10.4 mg/dL (8.5-10.1) H 05/28/24 05:20 Total Bilirubin 0.40 mg/dL (0.2-1.0) 05/28/24 05:20 AST 111 Units/L (15-37) H 05/28/24 05:20 ALT 22 Units/L (12-78) 05/28/24 05:20 Alkaline Phosphatase 196 Units/L (46-116) H 05/28/24 05:20 Total Protein 6.3 g/dL (6.4-8.2) L 05/28/24 05:20 Albumin 1.8 g/dL (3.4-5.0) L 05/28/24 05:20 Globulin 4.5 g/dL (2.5-4.5) 05/28/24 05:20 Albumin/Globulin Ratio 0.4 Ratio (1.1-2.1) L 05/28/24 05:20 Specimen Type Clean catch urine 05/27/24 16:17 Urine Color Dark yellow (YELLOW) 05/27/24 16:17 Urine Appearance Hazy (CLEAR) 05/27/24 16:17 Urine pH 6.0 (5.0 - 8.0) 05/27/24 16:17 Ur Specific [place] 1.020 (1.000-1.030) 05/27/24 16:17 Urine Protein 2+ (NEGATIVE) 05/27/24 16:17 Urine Glucose (UA) 4+ (NEGATIVE) 05/27/24 16:17 Urine Ketones Negative (NEGATIVE) 05/27/24 16:17 Urine Blood 1+ (NEGATIVE) 05/27/24 16:17 Urine Nitrite Negative (NEGATIVE) 05/27/24 16:17 Urine Bilirubin Negative (NEGATIVE) 05/27/24 16:17 Urine Urobilinogen Normal (NORMAL) 05/27/24 16:17 Ur Leukocyte Esterase 3+ (NEGATIVE) 05/27/24 16:17 Urine RBC 5-10 /HPF (0-3) A 05/27/24 16:17 Urine WBC 5-10 /HPF (0-5) A 05/27/24 16:17 Ur Squamous Epith Cells Few /HPF (NEGATIVE) 05/27/24 16:17 Urine Bacteria 3+ /HPF (NEGATIVE) 05/27/24 16:17 Hyaline Casts Few /LPF (NEGATIVE) 05/27/24 16:17 Urine Mucus Few /HPF (NEGATIVE) 05/27/24 16:17 Urine Yeast Rare /HPF (NEGATIVE) 05/27/24 16:17 Ur Culture Indicated? Yes/culture set up 05/27/24 16:17 SARS-CoV-2 (PCR) Negative (NEGATIVE) 05/27/24 12:45 Influenza Type A (PCR) Negative (NEGATIVE) 05/27/24 12:45 Influenza Type B (PCR) Negative (NEGATIVE) 05/27/24 12:45 RSV (PCR) Negative (NEGATIVE) 05/27/24 12:45 Review of Systems Constitutional: Chills, Weakness and Malaise Eyes: No Symptoms Reported ENT: No Symptoms Reported Respiratory: Shortness of Breath Cardiovascular: No Symptoms Reported Gastrointestinal: Constipation Genitourinary: Frequency and Incontinence Musculoskeletal: Back Pain Skin: No Symptoms Reported Neurological: Weakness Physical Exam Vital Signs: Vital Signs Temperature 98.2 F Pulse Rate [Right Brachial] 93 Respiratory Rate 19 Blood Pressure [Right Arm] 116/80 O2 Sat by Pulse Oximetry 95 O2 Sat by Pulse Oximetry 96 Oriented: Normal Eyes: Normal Ear: Normal Nose: Normal Throat: Dry Respiratory: RLL Diminished and LLL Diminished Cardiovascular: Normal Auscultation: Bowel Sounds: Decreased Tenderness: Suprapubic and Mild Skin: Decreased Turgur Musculoskeletal: Motor Deficit Psychiatric: Normal Mood Description: Calm Affect: Normal Speech Pattern: Clear and Appropriate Assessment/Plan (1) Pneumonia: Status: Acute Plan: ADMIT, IV ATBX SUPPLEMENTAL O2, RESP THERAPY VERIFY HOME MEDICATION AND RESUME CE AND EKG ON ADMISSION UA,UC (2) Hypertension: Qualifiers: Hypertension type: primary hypertension Qualified Code(s): I10 - Essential (primary) hypertension Status: Chronic (3) Urinary tract infection: Status: Acute (4) COPD (chronic obstructive pulmonary disease): Qualifiers: COPD type: unspecified COPD Qualified Code(s): J44.9 - Chronic obstructive pulmonary disease, unspecified Status: Chronic (5) GERD (gastroesophageal reflux disease): Qualifiers: Esophagitis presence: esophagitis presence not specified Qualified Cod e(s): K21.9 - Gastro-esophageal reflux disease without esophagitis Status: Chronic (6) CHF (congestive heart failure): Qualifiers: Heart failure chronicity: chronic Status: Chronic (7) Stented coronary artery: Status: Chronic
[2024-05-28] MEDS: NS 1,000 ML IV 1,000 ML ONE (12:51)
[2024-05-28] MEDS: DULCOLAX SUPPOSITORY 10 MG RECTAL ONE (12:57)
[2024-05-28] MEDS: NovoLIN R (or HumuLIN R) SUBCUT PRN (13:09)
[2024-05-28] MEDS: OMNIPAQUE 350 mg/mL 100 mL BTL 100 ML ONE (15:13)
--- NOTE | 2024-05-28 19:05 | CT ---
EXAM:CHEST WITH CONTRASTHISTORY:PNEUMONIA, CHRONIC COUGH/SOB;COMPARISON:CTA chest from December 15, 2021TECHNIQUE:Axial CT images of the chest were obtained after the administration of 100 mL Omnipaque 350 IV contrast. Images were reformatted into the coronal and sagittal planes for further evaluation.Radiation dose: 152.12 mGy-cm total DLPFINDINGS:No pericardial effusion.Status post median sternotomy/CABG.Pacemaker in place.Aorta is normal in caliber with no evidence of acute aortic syndrome.No filling defects in the pulmonary arteries.No hilar or mediastinal adenopathy.Thyroid appears normal.Central airways are widely patent.Esophagus appears normal.Imaged portion of the upper abdomen is grossly unremarkable with the exception of nonobstructing nephroliths.Chronic right pleural effusion with calcified margins; without significant change when compared to the previous exam.Atelectasis in the right lung base.No acute focal infiltrate, acute effusion or pneumothorax.IMPRESSION:1. No acute intrathoracic abnormality.2. Chronic changes in the right lung base are without significant differences when compared to the previous exam.3. Nonobstructing bilateral nephroliths.THIS IS AN ELECTRONICALLY VERIFIED FINAL REPORT05/28/2024 7:02 PM - Electronically signed by Javier Smith MD
--- NOTE | 2024-05-28 19:26 | CT ---
EXAMINATION:ABDCMEN/PELVIS WITH CONHISTORY:UTI, RO BLADDER OUTLET OBSTRUCTION, ABD PAIN;COMPARISON:None.TECHNIQUE:Contiguou s axial CT images of the abdomen and pelvis following intravenous contrast. Images reviewed in the axial imaging plane with reformatted sagittal and coronal images.The above CT scan was done with automated exposure control and the mA and kV was adjusted to obtain quality images according to patient size.FINDINGS:Images acquired through lower chest demonstrate soft tissue mass density central measurement 37 Hounsfield units with calcified borders in the posterior pleural space overlying the right lower lobe. Contiguous soft tissue mass density along the imaged posteroinferior right lower lobe measuring 8 cm transverse by 1.2 cm short axis dimensions. The superior aspect of the infiltrates was not included on the exam.The liver is enlarged measuring 22 by 17 x 17 cm. 1 x 0.5 cm hypodense region within the liver along the falciform ligament probable focal fatty infiltration.Cholecystectomy. No bile duct dilatation.Pancreas, spleen, adrenal glands appear intact.Kidneys normal size and position. Bilateral nonobstructing nephrolithiasis. No hydronephrosis. 2.3 cm exophytic mass along the lateral cortex mid to inferior pole of the right kidney central density 18 Hounsfield units most consistent with a renal cyst which may be followed up with ultrasound.Scattered arterial vascular calcifications of the abdominal aorta and branch vessels.Details of the GI tract are limited since oral contrast was not used. Scattered colonic diverticulosis. Mild amount of bowel-gas and feces. No evidence of acute appendicitis. Small bowel loops are normal caliber. Small amount of fluid/food within the stomach.Urinary bladder mildly distended with urine. Prostate gland is enlarged measuring 4.9 cm transverse dimension. Prominent seminal vesicles. Details of the pelvis are partially obscured by CT imaging artifacts from a right hip arthroplasty.Moderate multilevel spondylosis.IMPRESSION:Probable sequela of empyema imaged right pulmonary base as described above. Recommend follow-up CT of the thorax to fully imaged the infiltrate.Hepatomegaly.Cholecystectomy.Scattered arterial vascular calcifications.Probable 2.3 cm cyst right kidney. Recommend follow-up renal ultrasound.Enlarged prostate gland.Scattered colonic diverticulosis.THIS IS AN ELECTRONICALLY VERIFIED FINAL REPORT05/28/2024 7:23 PM - Electronically signed by Donna Baeza MD
[2024-05-28] MEDS ORDERED: SNACK - Diabetic Appropriate PO SCH (20:00)
[2024-05-28] MEDS: SNACK - Diabetic Appropriate PO SCH (20:45)
[2024-05-28] MEDS: COLACE CAP 100 MG PO SCH (21:54)
[2024-05-28] MEDS: MILK OF MAGNESIA PO SCH (22:40)
[2024-05-29 06:20] LABS: BASOPHILS # (AUTO) 0.2 X10^3/uL (0.0-0.1); EOSINOPHILS # (AUTO) 0.2 x10^3/uL (0.0-0.2); EOSINOPHILS % (AUTO) 1.1 % (0.9-2.9); HEMATOCRIT 36.7 % (42.0-54.0); HEMOGLOBIN 11.8 g/dL (13.5-18.0); LYMPHOCYTES # (AUTO) 1.4 X10^3/uL (1.3-2.9); LYMPHOCYTES % (AUTO) 8.6 % (21.0-51.0); MEAN CORPUSCULAR HEMOGLOBIN 31.2 pg (27.0-34.0); MEAN CORPUSCULAR VOLUME 97.3 fL (80.0-100.0); MEAN PLATELET VOLUME 7.3 fL (7.4-11.0); MONOCYTES # (AUTO) 0.5 x10^3/uL (0.3-0.8); MONOCYTES % (AUTO) 3.4 % (0.0-13.0); NEUTROPHILS # (AUTO) 13.8 x10^3/uL (2.2-4.8); NEUTROPHILS % (AUTO) 85.9 % (42.0-75.0); PLATELET COUNT 264 X10^3/uL (150.0-450.0); RED BLOOD COUNT 3.77 X10^6/uL (4.7-6.0); RED CELL DISTRIBUTION WIDTH 22.1 % (11.6-16.5)
[2024-05-29 06:30] LABS: ALANINE AMINOTRANSFERASE 18 Units/L (12-78); ALBUMIN 1.7 g/dL (3.4-5.0); ALKALINE PHOSPHATASE 170 Units/L (46-116); ASPARTATE AMINO TRANSFERASE 52 Units/L (15-37); BLOOD UREA NITROGEN 13 mg/dL (7-18); CALCIUM 8.7 mg/dL (8.5-10.1); CARBON DIOXIDE 26.6 mmol/L (21-32); CHLORIDE 99 mmol/L (98-107); COR CA(FOR HYPOALB) 10.5 mg/dL (8.5-10.1); COR NA(FOR HYPERGLY) 137 mmol/L (136-145); CREATININE 0.63 mg/dL (0.70-1.30); GLUCOSE 130 mg/dL (65-99); MAGNESIUM 1.6 mg/dL (2.0-2.9); POTASSIUM 3.3 mmol/L (3.5-5.1); SODIUM 136 mmol/L (136-145); TOTAL PROTEIN 5.9 g/dL (6.4-8.2); eGFR NON BLACK RACES > 60 (>60)
[2024-05-29] MEDS ORDERED: CONSULT PHARMACY - POTASSIUM & MAGNESIUM XX SCH (07:00)
[2024-05-29 07:05] LABS: ANISOCYTOSIS 2+; PLATELET MORPHOLOGY COMMENT NORMAL (NORMAL)
[2024-05-29] MEDS: LASIX IVP ONE (08:29)
[2024-05-29] MEDS: MAG-OX TAB PO SCH (08:30)
[2024-05-29] MEDS: FLOMAX PO SCH (08:31)
[2024-05-29] MEDS: K-DUR TAB 20 MEQ PO SCH ×2 (08:31)
[2024-05-29] MEDS: MIRALAX POWDER (1 DOSE 17 G) PO SCH (09:19)
[2024-05-29] MEDS: SOLU-Medrol 40 MG VIAL IVP SCH (09:20)
[2024-05-29] MEDS: NYSTATIN SUSP MT SCH (09:20)
[2024-05-29] MEDS ORDERED: NS 500 ML IV 500 ML IV ONE (12:09)
[2024-05-29] MEDS: NS 500 ML IV 300 ML IV ONE (12:39)
[2024-05-29] MEDS: BUTT CREAM (COMPOUND) TOP PRN (18:18)
[2024-05-30 05:36] LABS: BASOPHILS # (AUTO) 0.1 X10^3/uL (0.0-0.1); BASOPHILS % (AUTO) 0.5 % (0.2-1.0); EOSINOPHILS # (AUTO) 0.1 x10^3/uL (0.0-0.2); EOSINOPHILS % (AUTO) 0.6 % (0.9-2.9); HEMATOCRIT 34.3 % (42.0-54.0); HEMOGLOBIN 10.9 g/dL (13.5-18.0); LYMPHOCYTES # (AUTO) 0.8 X10^3/uL (1.3-2.9); MEAN CORPUSCULAR HEMOGLOBIN 30.8 pg (27.0-34.0); MEAN CORPUSCULAR HGB CONC 31.9 g/dL (33.0-35.0); MEAN CORPUSCULAR VOLUME 96.6 fL (80.0-100.0); MEAN PLATELET VOLUME 7.2 fL (7.4-11.0); MONOCYTES # (AUTO) 0.5 x10^3/uL (0.3-0.8); MONOCYTES % (AUTO) 2.7 % (0.0-13.0); NEUTROPHILS # (AUTO) 17.9 x10^3/uL (2.2-4.8); NEUTROPHILS % (AUTO) 92.2 % (42.0-75.0); PLATELET COUNT 246 X10^3/uL (150.0-450.0); RED BLOOD COUNT 3.55 X10^6/uL (4.7-6.0); WHITE BLOOD COUNT 19.4 X10^3/uL (3.6-10.0)
[2024-05-30 05:46] LABS: ALANINE AMINOTRANSFERASE 15 Units/L (12-78); ALBUMIN 1.8 g/dL (3.4-5.0); ALKALINE PHOSPHATASE 153 Units/L (46-116); ASPARTATE AMINO TRANSFERASE 30 Units/L (15-37); BLOOD UREA NITROGEN 12 mg/dL (7-18); CALCIUM 8.6 mg/dL (8.5-10.1); CARBON DIOXIDE 24.2 mmol/L (21-32); CHLORIDE 99 mmol/L (98-107); COR CA(FOR HYPOALB) 10.4 mg/dL (8.5-10.1); COR NA(FOR HYPERGLY) 135 mmol/L (136-145); CREATININE 0.63 mg/dL (0.70-1.30); GLUCOSE 176 mg/dL (65-99); MAGNESIUM 1.7 mg/dL (2.0-2.9); SODIUM 133 mmol/L (136-145); TOTAL PROTEIN 5.8 g/dL (6.4-8.2); eGFR NON BLACK RACES > 60 (>60)
[2024-05-30 06:02] LABS: ANISOCYTOSIS 1+; PLATELET MORPHOLOGY COMMENT NORMAL (NORMAL)
[2024-05-30 06:08] LABS: POTASSIUM 4.5 mmol/L (3.5-5.1)
[2024-05-30] MEDS: LASIX IVP NR (10:37)
--- NOTE | 2024-05-30 10:51 | RAD ---
EXAM: CHEST, PA/LAT ADULT HISTORY: PNEUMONIA; COMPARISON: 05/27/2024 TECHNIQUE: PA and lateral FINDINGS: Left-sided ICD/pacer leads in place. Median sternotomy wires and postsurgical changes from CABG. St able prominent cardiac silhouette. Mild increased right lower lobe infiltrates. No pleural effusion or pneumothorax. IMPRESSION: Mild increased right lower lobe infiltrates. THIS IS AN ELECTRONICALLY VERIFIED FINAL REPORT 05/30/2024 10:32 AM - Electronically signed by Keith Santana MD
[2024-05-30] MEDS: COREG TAB 3.125 MG PO SCH (21:10)
[2024-05-31 06:28] LABS: BASOPHILS # (AUTO) 0.1 X10^3/uL (0.0-0.1); BASOPHILS % (AUTO) 0.4 % (0.2-1.0); EOSINOPHILS # (AUTO) 0.1 x10^3/uL (0.0-0.2); EOSINOPHILS % (AUTO) 0.8 % (0.9-2.9); HEMATOCRIT 30.4 % (42.0-54.0); LYMPHOCYTES # (AUTO) 1.5 X10^3/uL (1.3-2.9); LYMPHOCYTES % (AUTO) 9.9 % (21.0-51.0); MEAN CORPUSCULAR HEMOGLOBIN 31.9 pg (27.0-34.0); MEAN CORPUSCULAR HGB CONC 33.1 g/dL (33.0-35.0); MEAN CORPUSCULAR VOLUME 96.3 fL (80.0-100.0); MONOCYTES # (AUTO) 0.9 x10^3/uL (0.3-0.8); MONOCYTES % (AUTO) 5.8 % (0.0-13.0); NEUTROPHILS # (AUTO) 12.7 x10^3/uL (2.2-4.8); NEUTROPHILS % (AUTO) 83.1 % (42.0-75.0); PLATELET COUNT 266 X10^3/uL (150.0-450.0); RED BLOOD COUNT 3.15 X10^6/uL (4.7-6.0); RED CELL DISTRIBUTION WIDTH 22.3 % (11.6-16.5); WHITE BLOOD COUNT 15.3 X10^3/uL (3.6-10.0)
[2024-05-31 06:43] LABS: ALANINE AMINOTRANSFERASE 16 Units/L (12-78); ALBUMIN 1.8 g/dL (3.4-5.0); ALKALINE PHOSPHATASE 155 Units/L (46-116); ASPARTATE AMINO TRANSFERASE 47 Units/L (15-37); BLOOD UREA NITROGEN 13 mg/dL (7-18); CALCIUM 8.5 mg/dL (8.5-10.1); CARBON DIOXIDE 26.7 mmol/L (21-32); CHLORIDE 100 mmol/L (98-107); COR CA(FOR HYPOALB) 10.3 mg/dL (8.5-10.1); COR NA(FOR HYPERGLY) 135 mmol/L (136-145); CREATININE 0.69 mg/dL (0.70-1.30); GLUCOSE 128 mg/dL (65-99); MAGNESIUM 1.9 mg/dL (2.0-2.9); POTASSIUM 4.2 mmol/L (3.5-5.1); SODIUM 134 mmol/L (136-145); TOTAL PROTEIN 5.6 g/dL (6.4-8.2); eGFR NON BLACK RACES > 60 (>60)
[2024-05-31] MEDS ORDERED: CONSULT PHARMACY - POTASSIUM & MAGNESIUM XX SCH (07:00)
[2024-05-31 07:09] LABS: ANISOCYTOSIS 2+; BAND NEUTROPHILS % 2 % (0-10); PLATELET MORPHOLOGY COMMENT NORMAL (NORMAL)
[2024-05-31 07:35] LABS: BILIRUBIN,URINE NEGATIVE (NEGATIVE); BLOOD/HEMOGLOBIN,URINE NEGATIVE (NEGATIVE); GLUCOSE, URINE 4+ (NEGATIVE); KETONES,URINE NEGATIVE (NEGATIVE); LEUKOCYTE ESTERASE ,URINE 1+ (NEGATIVE); NITRITES,URINE NEGATIVE (NEGATIVE); PROTEIN,URINE NEGATIVE (NEGATIVE); UROBILINOGEN,URINE NORMAL (NORMAL)
[2024-05-31 07:39] LABS: APPEARANCE,URINE CLEAR (CLEAR); COLOR,URINE YELLOW (YELLOW)
[2024-05-31 07:41] LABS: BACTERIA,URINE NEGATIVE /HPF (NEGATIVE); RBC,URINE 0-2 /HPF (0-3); SQUAMOUS EPITHELIAL CELL,UR RARE /HPF (NEGATIVE)
[2024-05-31] MEDS: MAG-OX TAB PO SCH (08:36)
[2024-05-31 08:40] VITALS: RESP 17
--- NOTE | 2024-05-31 08:40 | RAD ---
EXAM:Portable chestHISTORY:PneumoniaCOMPARISON: 025FINDINGS:There is a pacemaker present overlying the left upper chest obscuring a portion of the lateral left upper lobe. Patient is status post median sternotomy and CABG. Heart size is upper limits normal. Suzi are normal. Right upper lung field and left lung remain clear. Left lower l density is most likely due to pleural calcifications present. No definite right basilar infiltrate remains. No pleural effusions or pneumothoraces identified. Bony thorax is unremarkable.IMPRESSION:No definite residual acute infiltratesResidual density in the right lung base is likely due to overlying pleural calcifications.THIS IS AN ELECTRONICALLY VERIFIED FINAL REPORT05/31/2024 8:37 AM - Electronically signed by Kenroy Bajwa MD
[2024-05-31 12:10] VITALS: BP 90/57; PULSE 69; TEMP 97.8; O2SAT 97
== END 2024-05-31 13:00 | disposition home health service (06) | DRG 194 ==
LOC: ER 11:53 → MED/SURG 18:15
PROVIDERS: ADMIT Internal Medicine; ATTEND Internal Medicine
DX: I50.9 Heart failure, unspecified; R53.1 Weakness; I11.0 Hypertensive heart disease with heart failure; Z03.818 Encounter for observation for suspected exposure to other biological agents ruled out; R78.81 Bacteremia; E11.65 Type 2 diabetes mellitus with hyperglycemia; E86.0 Dehydration; R70.0 Elevated erythrocyte sedimentation rate; E83.42 Hypomagnesemia; J18.8 Other pneumonia, unspecified organism; R79.89 Other specified abnormal findings of blood chemistry; N40.0 Benign prostatic hyperplasia without lower urinary tract symptoms; R79.82 Elevated C-reactive protein (CRP); I25.810 Atherosclerosis of coronary artery bypass graft(s) without angina pectoris; J44.9 Chronic obstructive pulmonary disease, unspecified; R62.7 Adult failure to thrive; R26.89 Other abnormalities of gait and mobility; I77.6 Arteritis, unspecified; Z95.0 Presence of cardiac pacemaker; R06.02 Shortness of breath; K21.9 Gastro-esophageal reflux disease without esophagitis; N39.0 Urinary tract infection, site not specified